=== PATIENT | female | born 1940 | race Hispanic/Latino ===

== ENCOUNTER 2018-01-19 13:05 | Inpatient (IN) | payer MEDICARE ==
[2018-01-19 14:57] LABS: Hematocrit 35.8 % (30.3-42.9); Hemoglobin 11.2 gm/dl (10.1-14.3); Mean Corpuscular Hemoglobin 25 pg (28-32); Mean Corpuscular Volume 80 fl (79-97); Red Blood Count 4.46 M/mm3 (3.65-5.03)
[2018-01-19 14:58] LABS: Basophils # (Auto) 0.1 K/mm3 (0.0-0.1); Basophils % (Auto) 0.6 % (0.0-1.8); Eosinophils # (Auto) 0.4 K/mm3 (0.0-0.4); Eosinophils % (Auto) 2.1 % (0.0-4.3); Lymphocytes # (Auto) 0.8 K/mm3 (1.2-5.4); Lymphocytes % (Auto) 4.9 % (13.4-35.0); Mean Corpuscular HGB Conc 31 % (30-34); Mean Platelet Volume 9.3 fl (6-12); Monocytes # (Auto) 0.9 K/mm3 (0.0-0.8); Monocytes % (Auto) 5.2 % (0.0-7.3); Platelet Count 381 K/mm3 (140-440); Red Cell Distribution Width 15.2 % (13.2-15.2)
[2018-01-19 15:06] LABS: Calcium 9.3 mg/dL (8.4-10.2)
--- NOTE | 2018-01-19 15:49 | Emergency Department Report ---
ED General Adult HPI - General Chief complaint: Dyspnea/Respdistress Stated complaint: ABDI Time Seen by Provider: 01/19/18 15:39 Source: family, EMS Mode of arrival: Stretcher Limitations: Language Barrier, Physical Limitation - History of Present Illness Initial comments: This is a 77 year old longterm resident that was sent for evaluation of "respiratory distress". On review of her transfer documents her pulse oximetry was not apparently documented. Respiratory rate was 19 and she was afebrile. She was transported via EMS for further care and evaluation. I do not find any EMS transfer record yet. The patient has a history of advanced dementia, coronary artery disease, hypothyroidism hypertension and GERD. She is unable to provide any useful historical information. She is however awake and alert. -: unknown Severity scale (0 -10): 0 - Related Data Home Medications Medication Instructions Recorded Confirmed Last Taken Aspirin EC [Aspirin Enteric Coated 81 mg PO DAILY 04/07/14 04/14/14 04/13/14 10: 00 TAB] Clopidogrel [Plavix] 75 mg PO QDAY 04/07/14 04/14/14 04/13/14 22:00 Amlodipine Bes/Olmesartan Med 1 tab PO DAILY 04/08/14 04/14/14 04/13/14 10:00 [Abiola 10-20 mg] Donepezil [Aricept] 10 mg PO DAILY 04/08/14 04/14/14 04/13/14 10:00 Estradiol [Estrace] 1 mg PO DAILY 04/08/14 04/14/14 04/13/14 10:00 Gabapentin Enacarbil [Horizant] 600 mg PO TID 04/08/14 04/14/14 04/13/14 10:00 Hydralazine HCl [Apresoline TAB] 25 mg PO BID 04/08/14 04/14/14 04/14/14 05:00 Isosorbide Mononitrate [Isosorbide 60 mg PO DAILY 04/08/14 04/14/14 04/14/14 05: 00 Mononitrate ER (IMDUR)] Levothyroxine (Nf) [Synthroid (Nf)] 200 mcg PO DAILY 04/08/14 04/14/14 04/14/14 05:00 Lovastatin [Altoprev] 40 mg PO DAILY 04/08/14 04/14/14 04/13/14 10:00 Metoprolol [Lopressor TAB] 25 mg PO DAILY 04/08/14 04/14/14 04/14/14 05:00 Oxybutynin Xl [Ditropan Xl] 15 mg PO DAILY 04/08/14 04/14/14 04/13/14 10:00 Ranitidine HCl [Zantac 300 MG TAB] 300 mg PO HS 04/08/14 04/14/14 04/13/14 13:00 Ranolazine [Ranexa] 1 tab PO BID 04/08/14 04/14/14 04/13/14 18:30 Ropinirole HCl [Requip Xl] 2 mg PO HS 04/08/14 04/14/14 04/13/14 22:00 Previous Rx's Medication Instructions Recorded Last Taken Type Insulin Glargine,Hum.rec.anlog 15 unit SQ QHS #1 bottle 04/17/14 Unknown Rx [Lantus] Syringe,Needle,Insuln,Sf,0.3ML 1 each MC QHS #30 disp.syrin 04/17/14 Unknown Rx [[employer] Insulin Syringe] metFORMIN [Glucophage] 500 mg PO QAMDIAB #60 tablet 04/17/14 Unknown Rx oxyCODONE /ACETAMINOPHEN [Percocet 1 tab PO Q6H PRN #60 tablet 04/17/14 Unknown Rx 5/325 mg] Allergies Allergy/AdvReac Type Severity Reaction Status Date / Time carisoprodol [From Soma] Allergy Unknown Verified 04/09/14 11:03 piroxicam [From Feldene] Allergy cant Verified 04/09/14 11:03 remember ended up in ER ED Review of Systems ROS: Stated complaint: ABDI Other details as noted in HPI Comment: Unobtainable due to pts medical conditions ED Past Medical Hx - Past Medical History Hx Hypertension: Yes (10 YRS; high cholesterol) Hx Heart Attack/AMI: No Hx Diabetes: Yes (6yrs) Hx GERD: Yes Hx Liver Disease: No Hx Renal Disease: No Hx Seizures: No Hx Asthma: Yes Hx COPD: Yes - Surgical History Hx Breast Surgery: Yes (RT CYST REMOVED) - Social History Smoking Status: Former Smoker Substance Use Type: None - Medications Home Medications: Home Medications Medication Instructions Recorded Confirmed Last Taken Type Aspirin EC [Aspirin Enteric Coated 81 mg PO DAILY 0704/14/14 04/13/14 10: 00 History TAB] Clopidogrel [Plavix] 75 mg PO QDAY 04/07/14 04/14/14 04/13/14 22:00 History Amlodipine Bes/Olmesartan Med 1 tab PO DAILY 04/08/14 04/14/14 04/13/14 10:00 History [Abiola 10-20 mg] Donepezil [Aricept] 10 mg PO DAILY 04/08/14 04/14/14 04/13/14 10:00 History Estradiol [Estrace] 1 mg PO DAILY 04/08/14 04/14/14 04/13/14 10:00 History Gabapentin Enacarbil [Horizant] 600 mg PO TID 04/08/14 04/14/14 04/13/14 10:00 History Hydralazine HCl [Apresoline TAB] 25 mg PO BID 04/08/14 04/14/14 04/14/14 05:00 History Isosorbide Mononitrate [Isosorbide 60 mg PO DAILY 04/08/14 04/14/14 04/14/14 05: 00 History Mononitrate ER (IMDUR)] Levothyroxine (Nf) [Synthroid (Nf)] 200 mcg PO DAILY 04/08/14 04/14/14 04/14/14 05:00 History Lovastatin [Altoprev] 40 mg PO DAILY 04/08/14 04/14/14 04/13/14 10:00 History Metoprolol [Lopressor TAB] 25 mg PO DAILY 04/08/14 04/14/14 04/14/14 05:00 History Oxybutynin Xl [Ditropan Xl] 15 mg PO DAILY 04/08/14 04/14/14 04/13/14 10:00 History Ranitidine HCl [Zantac 300 MG TAB] 300 mg PO HS 04/08/14 04/14/14 04/13/14 13: 00 History Ranolazine [Ranexa] 1 tab PO BID 04/08/14 04/14/14 04/13/14 18:30 History Ropinirole HCl [Requip Xl] 2 mg PO HS 04/08/14 04/14/14 04/13/14 22:00 History Insulin Glargine,Hum.rec.anlog 15 unit SQ QHS #1 bottle 04/17/14 Unknown Rx [Lantus] Syringe,Needle,Insuln,Sf,0.3ML 1 each QHS #30 disp.syrin 04/17/14 Unknown Rx [[employer] Insulin Syringe] metFORMIN [Glucophage] 500 mg PO QAMDIAB #60 tablet 04/17/14 Unknown Rx oxyCODONE /ACETAMINOPHEN [Percocet 1 tab PO Q6H PRN #60 tablet 04/17/14 Unknown Rx 5/325 mg] ED Physical Exam - General Limitations: Other (dementia) General appearance: alert, in no apparent distress - Head Head exam: Present: atraumatic, normocephalic - Eye Eye exam: Present: normal appearance. Absent: scleral icterus - ENT ENT exam: Present: mucous membranes moist - Neck Neck exam: Present: normal inspection. Absent: tenderness, meningismus - Respiratory Respiratory exam: Present: normal lung sounds bilaterally. Absent: respiratory distress - Cardiovascular Cardiovascular Exam: Present: regular rate, normal rhythm. Absent: systolic murmur, diastolic murmur, rubs, gallop - GI/Abdominal GI/Abdominal exam: Present: soft, normal bowel sounds. Absent: distended, tenderness, guarding, rebound, rigid - Extremities Exam Extremities exam: Present: normal inspection - Back Exam Back exam: Present: normal inspection. Absent: CVA tenderness (R), CVA tenderness (L) - Neurological Exam Neurological exam: Present: alert, CN II-XII intact. Absent: motor sensory deficit - Psychiatric Psychiatric exam: Present: normal mood, flat affect - Skin Skin exam: Present: warm, dry, intact, normal color. Absent: rash ED Course Vital Signs 01/19/18 01/19/18 01/19/18 13:43 13:55 15:51 Temperature 98.5 F 97.8 F Pulse Rate 106 H 102 H Respiratory 23 15 16 Rate Blood Pressure 139/77 Blood Pressure 143/83 [Left] O2 Sat by Pulse 95 93 95 Oximetry 01/19/18 17:51 Temperature 98.6 F Pulse Rate 98 H Respiratory 14 Rate Blood Pressure Blood Pressure 131/67 [Left] O2 Sat by Pulse 95 Oximetry - Reevaluation(s) Reevaluation #1: It appears that this patient's source of sepsis is likely urinary. She is saying antibiotic coverage and IV fluids. Further care per Dr. Shultz who has admitted the patient to the hospitalist service. 01/19/18 18:37 Reevaluation #2: I have ordered a plain CT of the abdomen and pelvis considering the patient's sepsis and urinary source. 01/19/18 18:39 ED Medical Decision Making - Lab Data Result diagrams: 01/19/18 14:38 01/19/18 14:38 Laboratory Results - last 24 hr 01/19/18 01/19/18 01/19/18 14:38 14:38 14:38 WBC 16.9 H RBC 4.46 Hgb 11.2 Hct 35.8 MCV 80 MCH 25 L MCHC 31 RDW 15.2 Plt Count 381 Lymph % (Auto) 4.9 L [place] % (Auto) 5.2 Eos % (Auto) 2.1 Baso % (Auto) 0.6 Lymph # 0.8 L [place] # 0.9 H Eos # 0.4 Baso # 0.1 Seg Neutrophils % 87.2 H Seg Neutrophils # 14.7 H VBG pH Sodium 140 Potassium 4.8 Chloride 98.1 Carbon Dioxide 23 Anion Gap 24 BUN 24 H Creatinine 1.0 Estimated GFR 54 BUN/Creatinine Ratio 24 Glucose 168 H Calcium 9.3 Troponin T 0.027 NT-Pro-B Natriuret Pep 01/19/18 01/19/18 14:38 14:38 WBC RBC Hgb Hct MCV MCH MCHC RDW Plt Count Lymph % (Auto) [place] % (Auto) Eos % (Auto) Baso % (Auto) Lymph # [place] # Eos # Baso # Seg Neutrophils % Seg Neutrophils # VBG pH 7.264 L Sodium Potassium Chloride Carbon Dioxide Anion Gap BUN Creatinine Estimated GFR BUN/Creatinine Ratio Glucose Calcium Troponin T NT-Pro-B Natriuret Pep 7527 H Laboratory Results - last 24 hr 01/19/18 01/19/18 01/19/18 14:38 14:38 14:38 WBC 16.9 H RBC 4.46 Hgb 11.2 Hct 35.8 MCV 80 MCH 25 L MCHC 31 RDW 15.2 Plt Count 381 Lymph % (Auto) 4.9 L [place] % (Auto) 5.2 Eos % (Auto) 2.1 Baso % (Auto) 0.6 Lymph # 0.8 L [place] # 0.9 H Eos # 0.4 Baso # 0.1 Seg Neutrophils % 87.2 H Seg Neutrophils # 14.7 H PT INR APTT VBG pH Sodium 140 Potassium 4.8 Chloride 98.1 Carbon Dioxide 23 Anion Gap 24 BUN 24 H Creatinine 1.0 Estimated GFR 54 BUN/Creatinine Ratio 24 Glucose 168 H Lactic Acid Calcium 9.3 Magnesium Total Bilirubin Direct Bilirubin Indirect Bilirubin AST ALT Alkaline Phosphatase Troponin T 0.027 NT-Pro-B Natriuret Pep Total Protein Albumin Albumin/Globulin Ratio Urine Color Urine Turbidity Urine pH Ur Specific Joseph Urine Protein Urine Glucose (UA) Urine Ketones Urine Blood Urine Nitrite Urine Bilirubin Urine Urobilinogen Ur Leukocyte Esterase Urine WBC (Auto) Urine RBC (Auto) U Epithel Cells (Auto) Urine Bacteria (Auto) Urine WBC Clumps Urine Mucus 01/19/18 01/19/18 01/19/18 14:38 14:38 16:12 WBC RBC Hgb Hct MCV MCH MCHC RDW Plt Count Lymph % (Auto) [place] % (Auto) Eos % (Auto) Baso % (Auto) Lymph # [place] # Eos # Baso # Seg Neutrophils % Seg Neutrophils # PT 12.8 INR 0.92 APTT 28.6 VBG pH 7.264 L Sodium Potassium Chloride Carbon Dioxide Anion Gap BUN Creatinine Estimated GFR BUN/Creatinine Ratio Glucose Lactic Acid Calcium Magnesium Total Bilirubin Direct Bilirubin Indirect Bilirubin AST ALT Alkaline Phosphatase Troponin T NT-Pro-B Natriuret Pep 7527 H Total Protein Albumin Albumin/Globulin Ratio Urine Color Urine Turbidity Urine pH Ur Specific Joseph Urine Protein Urine Glucose (UA) Urine Ketones Urine Blood Urine Nitrite Urine Bilirubin Urine Urobilinogen Ur Leukocyte Esterase Urine WBC (Auto) Urine RBC (Auto) U Epithel Cells (Auto) Urine Bacteria (Auto) Urine WBC Clumps Urine Mucus 01/19/18 01/19/18 01/19/18 16:12 16:12 17:20 WBC RBC Hgb Hct MCV MCH MCHC RDW Plt Count Lymph % (Auto) [place] % (Auto) Eos % (Auto) Baso % (Auto) Lymph # [place] # Eos # Baso # Seg Neutrophils % Seg Neutrophils # PT INR APTT VBG pH Sodium Potassium Chloride Carbon Dioxide Anion Gap BUN Creatinine Estimated GFR BUN/Creatinine Ratio Glucose Lactic Acid 5.40 H* Calcium Magnesium 1.50 L Total Bilirubin 0.20 Direct Bilirubin < 0.2 Indirect Bilirubin 0.0 AST 10 ALT 6 L Alkaline Phosphatase 56 Troponin T NT-Pro-B Natriuret Pep Total Protein 7.2 Albumin 4.2 Albumin/Globulin Ratio 1.4 Urine Color Yellow Urine Turbidity Clear Urine pH 5.0 Ur Specific Joseph 1.014 Urine Protein 100 mg/dl Urine Glucose (UA) Neg Urine Ketones Neg Urine Blood Sm Urine Nitrite Pos Urine Bilirubin Neg Urine Urobilinogen < 2.0 Ur Leukocyte Esterase Lg Urine WBC (Auto) > 182.0 H Urine RBC (Auto) 49.0 U Epithel Cells (Auto) 1.0 Urine Bacteria (Auto) 4+ Urine WBC Clumps 3+ Urine Mucus Few - Radiology Data Radiology results: report reviewed (chest x-ray no acute process. CT report pending but I don't see infiltrate or pulmonary embolism grossly.) Critical Care Time: Yes Critical care time in (mins) excluding proc time.: 50 Critical care attestation.: If time is entered above; I have spent that time in minutes in the direct care of this critically ill patient, excluding procedure time. ED Disposition Clinical Impression: Sepsis Qualifiers: Sepsis type: sepsis due to unspecified organism Qualified Code(s): A41.9 - Sepsis, unspecified organism UTI (urinary tract infection) Qualifiers: Urinary tract infection type: site unspecified Hematuria presence: without hematuria Qualified Code(s): N39.0 - Urinary tract infection, site not specified Disposition: 09 OP ADMIT IP TO THIS HOSP Is pt being admited?: Yes Does the pt Need Aspirin: Yes Condition: Stable Referrals: ИРИНА BERKOWITZ MD [Primary Care Provider] - 3-5 Days Time of Disposition: 18:40
[2018-01-19] MEDS ORDERED: LEVAQUIN 750MG/150ML 750 MG/150 ML BAG IV ONE (16:01)
--- NOTE | 2018-01-19 16:22 | XRay Report ---
FINAL REPORT EXAM: XR CHEST 1V AP HISTORY: dyspnea TECHNIQUE: Single, portable chest x-ray. PRIORS: None. FINDINGS: Cardiac and mediastinal silhouette within normal limits. Lungs are normally expanded, without significant vascular congestion. No focal consolidation or apparent pneumothorax. Bony thorax grossly unremarkable. IMPRESSION: 1. No acute findings.
[2018-01-19 16:41] LABS: INR 0.92 (0.87-1.13)
[2018-01-19 16:42] LABS: Partial Thromboplastin Time 28.6 Sec. (24.2-36.6)
[2018-01-19 16:44] LABS: Alanine Aminotransferase 6 units/L (7-56); Albumin 4.2 g/dL (3.9-5)
[2018-01-19 16:45] LABS: Bilirubin,Direct < 0.2 mg/dL (0-0.2)
[2018-01-19 17:41] LABS: Bacteria,Urine 4+ /HPF (Negative); Bilirubin,Urine NEG (Negative); Blood,Urine SM (Negative); Color,Urine Yellow (Yellow); Mucus,Urine FEW /HPF; Urobilinogen,Urine < 2.0 mg/dL (<2.0)
[2018-01-19 17:43] LABS: WBC,Urine > 182.0 /HPF (0.0-6.0)
[2018-01-19] MEDS ORDERED: VANCOMYCIN PHARMACY TO DOSE IV SCH (18:00)
[2018-01-19] MEDS ORDERED: ZOSYN/NS 3.375GM/50ML 3.375 GM/50 ML BAG IV SCH (18:00)
[2018-01-19] MEDS ORDERED: VANCOMYCIN/NS 1 GM/250 ML 1 GM/250 ML BAG IV ONE (18:00)
[2018-01-19] MEDS ORDERED: NACL 0.9% 1000 ML 1,000 ML IV ONE (18:38)
--- NOTE | 2018-01-19 19:02 | Cat Scan Report ---
FINAL REPORT EXAM: CT ANGIO CHEST HISTORY: ABDI TECHNIQUE: Spiral CTA of the chest after the uneventful administration of IV contrast. Multiplanar reformations. 100 mL Omnipaque IV. PRIORS: None. FINDINGS: Chest: The main and bilateral proximal pulmonary arteries are normally opacified without endoluminal filling defects. Cardiac size within normal limits. Diffuse coronary artery calcifications. Diffuse, calcific atherosclerotic change in the thoracic aorta. No apparent aneurysm, pseudoaneurysm or aortic dissection. No significant lymph node enlargement or axillary adenopathy. Lobular or polypoid, soft tissue density noted eccentrically in the right infraglottic larynx measuring approximately 8 mm, nonspecific. Majority of the esophagus prominent or capacious and contains particulate material throughout most of its extent. Very small hiatal hernia. Lungs show mild interstitial prominence in the lung bases, with questionable endobronchial soft tissue density or mucous plugging in the left basilar bronchial airways. No discrete parenchymal mass, focal consolidation or pleural effusions. No apparent pneumothorax. Tiny gallstones noted without significant pericholecystic fluid collection. Approximately 7 mm calcification noted in the right renal upper pole without significant hydronephrosis. Remainder of visualized upper abdomen grossly unremarkable. Diffuse osteopenia and degenerative change in the thoracic spine. IMPRESSION: 1. No evidence of large vessel or central pulmonary emboli. No acute consolidation. Coronary artery calcifications. 2. Soft tissue nodular density in right infraglottic larynx may represent secretions versus polypoid lesion. Followup suggested. 3. Capacious esophagus containing particulate/probable ingested material throughout majority of esophagus possibly related to reflux. 4. Bibasilar interstitial prominence and slight endobronchial soft tissue density or mucous plugging primarily in left basilar bronchial airways may be postinfectious/inflammatory or sequelae of aspiration. Exact etiology or significance uncertain, and clinical correlation along with followup may be warranted. 5. Cholelithiasis. 6. Nonobstructing right renal calcification. No significant right hydronephrosis.
--- NOTE | 2018-01-19 19:12 | History and Physical Report ---
History of Present Illness Date of examination: 01/19/18 Date of admission: 01/19/18 Chief complaint: CC SOB and altered sensorium History of present illness: History of Present Illness: 77 year old [facility] resident with severe dementia was sent for evaluation of "respiratory distress". WAS doing well and at her baseline last night per daughter. Respiratory rate was 19 and she was afebrile.Patient was apparently foaming at mouth and 200 ml of secretions were suctioned per daughter. She was transported via EMS for further care and evaluation. She is however awake and alert.No fever or chills Past Medical History Hx Hypertension: Yes (10 YRS; high cholesterol) Hx Heart Attack/AMI: No Hx Diabetes: Yes (6yrs) Hx GERD: Yes Hx Asthma: Yes Hx COPD: Yes - Surgical History Hx Breast Surgery: Yes (RT CYST REMOVED) - Social History Smoking Status: Former Smoker Substance Use Type: None Family History Htn - Medications Home Medications: Home Medications Medication Instructions Recorded Confirmed Last Taken Type Aspirin EC [Aspirin Enteric Coated 81 mg PO DAILY 04/07/14 04/14/14 04/13/14 10: 00 History TAB] Clopidogrel [Plavix] 75 mg PO QDAY 04/07/14 04/14/14 04/13/14 22:00 History Amlodipine Bes/Olmesartan Med 1 tab PO DAILY 04/08/14 04/14/14 04/13/14 10:00 History [Abiola 10-20 mg] Donepezil [Aricept] 10 mg PO DAILY 04/08/14 04/14/14 04/13/14 10:00 History Estradiol [Estrace] 1 mg PO DAILY 04/08/14 04/14/14 04/13/14 10:00 History Gabapentin Enacarbil [Horizant] 600 mg PO TID 04/08/14 04/14/14 04/13/14 10:00 History Hydralazine HCl [Apresoline TAB] 25 mg PO BID 04/08/14 04/14/14 04/14/14 05:00 History Isosorbide Mononitrate [Isosorbide 60 mg PO DAILY 04/08/14 04/14/14 04/14/14 05: 00 History Mononitrate ER (IMDUR)] Levothyroxine (Nf) [Synthroid (Nf)] 200 mcg PO DAILY 07/04/14/14 04/14/14 05:00 History Lovastatin [Altoprev] 40 mg PO DAILY 04/08/14 04/14/14 04/13/14 10:00 History Metoprolol [Lopressor TAB] 25 mg PO DAILY 04/08/14 04/14/14 04/14/14 05:00 History Oxybutynin Xl [Ditropan Xl] 15 mg PO DAILY 04/08/14 04/14/14 04/13/14 10:00 History Ranitidine HCl [Zantac 300 MG TAB] 300 mg PO HS 04/08/14 04/14/14 04/13/14 13: 00 History Ranolazine [Ranexa] 1 tab PO BID 04/08/14 04/14/14 04/13/14 18:30 History Ropinirole HCl [Requip Xl] 2 mg PO HS 04/08/14 04/14/14 04/13/14 22:00 History Insulin Glargine,Hum.rec.anlog 15 unit SQ QHS #1 bottle 04/17/14 Unknown Rx [Lantus] Syringe,Needle,Insuln,Sf,0.3ML 1 each MC QHS #30 disp.syrin 04/17/14 Unknown Rx [[place] Insulin Syringe] metFORMIN [Glucophage] 500 mg PO QAMDIAB #60 tablet 04/17/14 Unknown Rx oxyCODONE /ACETAMINOPHEN [Percocet 1 tab PO Q6H PRN #60 tablet 04/17/14 Unknown Rx 5/325 mg] Review of Systems ROS: Stated complaint: ABDI Other details as noted in HPI Comment: Unobtainable due to pts medical conditions Medications and Allergies Allergies Allergy/AdvReac Type Severity Reaction Status Date / Time carisoprodol [From [place]] Allergy Unknown Verified 04/09/14 11:03 piroxicam [From Feldene] Allergy cant Verified 04/09/14 11:03 remember ended up in ER Home Medications Medication Instructions Recorded Confirmed Last Taken Type Aspirin EC [Aspirin Enteric Coated 81 mg PO DAILY 04/07/14 01/20/18 04/13/14 10: 00 History TAB] Clopidogrel [Plavix] 75 mg PO QDAY 04/07/14 01/20/18 04/13/14 22:00 History Amlodipine Bes/Olmesartan Med 1 tab PO DAILY 04/08/14 01/20/18 04/13/14 10:00 History [Abiola 10-20 mg] Donepezil [Aricept] 10 mg PO DAILY 04/08/14 01/20/18 04/13/14 10:00 History Estradiol [Estrace] 1 mg PO DAILY 04/08/14 01/20/18 04/13/14 10:00 History Gabapentin Enacarbil [Horizant] 600 mg PO TID 04/08/14 01/20/18 04/13/14 10:00 History Hydralazine HCl [Apresoline TAB] 25 mg PO BID 04/08/14 01/20/18 04/14/14 05:00 History Isosorbide Mononitrate [Isosorbide 60 mg PO DAILY 04/08/14 01/20/18 04/14/14 05: 00 History Mononitrate ER (IMDUR)] Levothyroxine (Nf) [Synthroid (Nf)] 200 mcg PO DAILY 04/08/14 01/20/18 04/14/14 05:00 History Lovastatin [Altoprev] 40 mg PO DAILY 04/08/14 01/20/18 04/13/14 10:00 History Metoprolol [Lopressor TAB] 25 mg PO DAILY 04/08/14 01/20/18 04/14/14 05:00 History Oxybutynin Xl [Ditropan Xl] 15 mg PO DAILY 04/08/14 01/20/18 04/13/14 10:00 History Ranitidine HCl [Zantac 300 MG TAB] 300 mg PO HS 04/08/14 01/20/18 04/13/14 13: 00 History Ranolazine [Ranexa] 1 tab PO BID 04/08/14 01/20/18 04/13/14 18:30 History Ropinirole HCl [Requip Xl] 2 mg PO HS 04/08/14 01/20/18 04/13/14 22:00 History Insulin Glargine,Hum.rec.anlog 15 unit SQ QHS #1 bottle 04/17/14 01/20/18 Unknown Rx [Lantus] Syringe,Needle,Insuln,Sf,0.3ML 1 each QHS #30 disp.syrin 04/17/14 01/20/18 Unknown Rx [[place] Insulin Syringe] metFORMIN [Glucophage] 500 mg PO QAMDIAB #60 tablet 04/17/14 01/20/18 Unknown Rx oxyCODONE /ACETAMINOPHEN [Percocet 1 tab PO Q6H PRN #60 tablet 04/17/14 Unknown Rx 5/325 mg] Active Meds: Active Medications Piperacillin Sod/Tazobactam Sod (Zosyn/Ns 3.375gm/50ml) 3.375 gm in 50 mls @ 100 mls/hr IV Q6HR JOSE FRANCISCO; Protocol Vancomycin HCl 750 mg/ Sodium (Chloride) 250 mls @ 166.667 mls/hr IV Q24H JOSE FRANCISCO Sodium Chloride (Nacl 0.9% 1000 Ml) 1,000 mls @ 999 mls/hr IV BOLUS ONE Stop: 01/19/18 19:38 Vancomycin HCl (Vancomycin Pharmacy To Dose) 1 each IV PKCONSULT JOSE FRANCISCO; Protocol Exam - Constitutional Vitals: Temp Pulse Resp BP Pulse Ox 98.6 F 98 H 14 131/67 95 01/19/18 17:51 01/19/18 17:51 01/19/18 17:51 01/19/18 17:51 01/19/18 17:51 General appearance: Present: mild distress, well-nourished - EENT Eyes: Present: PERRL ENT: hearing intact, clear oral mucosa - Neck Neck: Present: supple, normal ROM - Respiratory Respiratory effort: normal Respiratory: bilateral: CTA, rhonchi - Cardiovascular Heart rate: 80 Rhythm: regular Heart Sounds: Present: S1 & S2. Absent: rub, click - Extremities Extremities: no ischemia, pulses intact, pulses symmetrical, No edema Peripheral Pulses: within normal limits - Abdominal General gastrointestinal: Present: soft, non-tender, non-distended, normal bowel sounds Female genitourinary: Present: normal - Integumentary Integumentary: Present: clear, warm, dry - Musculoskeletal Musculoskeletal: gait normal, strength equal bilaterally - Psychiatric Psychiatric: cooperative, other (Alert but not oriented) - Neurologic Neurologic: CNII-XII intact, moves all extremities - Allied Health Allied health notes reviewed: nursing, case management Results - Labs CBC & Chem 7: 01/20/18 03:44 01/20/18 03:44 Labs: Laboratory Last Values WBC 16.9 K/mm3 (4.5-11.0) H 01/19/18 14:38 RBC 4.46 M/mm3 (3.65-5.03) 01/19/18 14:38 Hgb 11.2 gm/dl (10.1-14.3) 01/19/18 14:38 Hct 35.8 % (30.3-42.9) 01/19/18 14:38 MCV 80 fl (79-97) 01/19/18 14:38 MCH 25 pg (28-32) L 01/19/18 14:38 MCHC 31 % (30-34) 01/19/18 14:38 RDW 15.2 % (13.2-15.2) 01/19/18 14:38 Plt Count 381 K/mm3 (140-440) 01/19/18 14:38 Lymph % (Auto) 4.9 % (13.4-35.0) L 01/19/18 14:38 [place] % (Auto) 5.2 % (0.0-7.3) 01/19/18 14:38 Eos % (Auto) 2.1 % (0.0-4.3) 01/19/18 14:38 Baso % (Auto) 0.6 % (0.0-1.8) 01/19/18 14:38 Lymph # 0.8 K/mm3 (1.2-5.4) L 01/19/18 14:38 [place] # 0.9 K/mm3 (0.0-0.8) H 01/19/18 14:38 Eos # 0.4 K/mm3 (0.0-0.4) 01/19/18 14:38 Baso # 0.1 K/mm3 (0.0-0.1) 01/19/18 14:38 Seg Neutrophils % 87.2 % (40.0-70.0) H 01/19/18 14:38 Seg Neutrophils # 14.7 K/mm3 (1.8-7.7) H 01/19/18 14:38 PT 12.8 Sec. (12.2-14.9) 01/19/18 16:12 INR 0.92 (0.87-1.13) 01/19/18 16:12 APTT 28.6 Sec. (24.2-36.6) 01/19/18 16:12 VBG pH 7.264 (7.320-7.420) L 01/19/18 14:38 Sodium 140 mmol/L (137-145) 01/19/18 14:38 Potassium 4.8 mmol/L (3.6-5.0) 01/19/18 14:38 Chloride 98.1 mmol/L (98-107) 01/19/18 14:38 Carbon Dioxide 23 mmol/L (22-30) 01/19/18 14:38 Anion Gap 24 mmol/L 01/19/18 14:38 BUN 24 mg/dL (7-17) H 01/19/18 14:38 Creatinine 1.0 mg/dL (0.7-1.2) 01/19/18 14:38 Estimated GFR 54 ml/min 01/19/18 14:38 BUN/Creatinine Ratio 24 % 01/19/18 14:38 Glucose 168 mg/dL (65-100) H 01/19/18 14:38 Lactic Acid 5.40 mmol/L (0.7-2.0) H* 01/19/18 16:12 Calcium 9.3 mg/dL (8.4-10.2) 01/19/18 14:38 Magnesium 1.50 mg/dL (1.7-2.3) L 01/19/18 16:12 Total Bilirubin 0.20 mg/dL (0.1-1.2) 01/19/18 16:12 Direct Bilirubin < 0.2 mg/dL (0-0.2) 01/19/18 16:12 Indirect Bilirubin 0.0 mg/dL 01/19/18 16:12 AST 10 units/L (5-40) 01/19/18 16:12 ALT 6 units/L (7-56) L 01/19/18 16:12 Alkaline Phosphatase 56 units/L (35-129) 01/19/18 16:12 Troponin T 0.027 ng/mL (0.00-0.029) 01/19/18 14:38 NT-Pro-B Natriuret Pep 7527 pg/mL (0-900) H 01/19/18 14:38 Total Protein 7.2 g/dL (6.3-8.2) 01/19/18 16:12 Albumin 4.2 g/dL (3.9-5) 01/19/18 16:12 Albumin/Globulin Ratio 1.4 % 01/19/18 16:12 Urine Color Yellow (Yellow) 01/19/18 17:20 Urine Turbidity Clear (Clear) 01/19/18 17:20 Urine pH 5.0 (5.0-7.0) 01/19/18 17:20 Ur Specific [place] 1.014 (1.003-1.030) 01/19/18 17:20 Urine Protein 100 mg/dl mg/dL (Negative) 01/19/18 17:20 Urine Glucose (UA) Neg mg/dL (Negative) 01/19/18 17:20 Urine Ketones Neg mg/dL (Negative) 01/19/18 17:20 Urine Blood Sm (Negative) 01/19/18 17:20 Urine Nitrite Pos (Negative) 01/19/18 17:20 Urine Bilirubin Neg (Negative) 01/19/18 17:20 Urine Urobilinogen < 2.0 mg/dL (<2.0) 01/19/18 17:20 Ur Leukocyte Esterase Lg (Negative) 01/19/18 17:20 Urine WBC (Auto) > 182.0 /HPF (0.0-6.0) H 01/19/18 17:20 Urine RBC (Auto) 49.0 /HPF (0.0-6.0) 01/19/18 17:20 U Epithel Cells (Auto) 1.0 /HPF (0-13.0) 01/19/18 17:20 Urine Bacteria (Auto) 4+ /HPF (Negative) 01/19/18 17:20 Urine WBC Clumps 3+ /HPF 01/19/18 17:20 Urine Mucus Few /HPF 01/19/18 17:20 - Imaging and Cardiology EKG: report reviewed Chest x-ray: report reviewed (NAF) Imaging and Cardiology: Chest CTA IMPRESSION: 1. No evidence of large vessel or central pulmonary emboli. No acute consolidation. Coronary artery calcifications. 2. Soft tissue nodular density in right infraglottic larynx may represent secretions versus polypoid lesion. Followup suggested. 3. Capacious esophagus containing particulate/probable ingested material throughout majority of esophagus possibly related to reflux. 4. Bibasilar interstitial prominence and slight endobronchial soft tissue density or mucous plugging primarily in left basilar bronchial airways may be postinfectious/inflammatory or sequelae of aspiration. Exact etiology or significance uncertain, and clinical correlation along with followup may be warranted. 5. Cholelithiasis. 6. Nonobstructing right renal calcification. No significant right hydronephrosis. CT Abdomen IMPRESSION: 1. Cholelithiasis. 2. Constipation. Assessment and Plan Advance Directives: Yes (Full code) VTE prophylaxis?: Chemical Plan of care discussed with patient/family: Yes - Patient Problems (1) Sepsis Current Visit: Yes Status: Acute Qualifiers: Sepsis type: sepsis due to unspecified organism Qualified Code(s): A41.9 - Sepsis, unspecified organism Plan to address problem: Initiated on zosyn and Vanco Pending Blood cultures and Urine cultures Poss source UTI versus Aspiration (2) Aspiration pneumonia due to food (regurgitated) Current Visit: Yes Status: Acute Qualifiers: Laterality: unspecified laterality Lung location: unspecified part of lung Qualified Code(s): J69.0 - Pneumonitis due to inhalation of food and vomit Plan to address problem: A strong possibility in view of large amount of food in Esophagus (3) UTI (urinary tract infection) Current Visit: Yes Status: Acute Qualifiers: Urinary tract infection type: site unspecified Hematuria presence: without hematuria Qualified Code(s): N39.0 - Urinary tract infection, site not specified Plan to address problem: On Zosyn and Vanco (4) Hypertension Current Visit: No Status: Chronic Qualifiers: Hypertension type: essential hypertension Qualified Code(s): I10 - Essential (primary) hypertension Plan to address problem: Cont Antihypertensives (5) CAD (coronary artery disease) Current Visit: Yes Status: Chronic Qualifiers: Coronary Disease-Associated Artery/Lesion type: [place] artery [place] vs. transplanted heart: [place] heart Associated angina: without angina Qualified Code(s): I25.10 - Atherosclerotic heart disease of [place] coronary artery without angina pectoris Plan to address problem: Cont Plavix andf Imdur (6) Dementia Current Visit: No Status: Chronic Qualifiers: Dementia type: vascular dementia Plan to address problem: Cont Donepezil (7) Hypothyroidism Current Visit: No Status: Chronic Qualifiers: Hypothyroidism type: acquired Qualified Code(s): E03.9 - Hypothyroidism, unspecified Plan to address problem: Cont Levothyroxine (8) OAB (overactive bladder) Current Visit: Yes Status: Chronic Plan to address problem: On Oxybutinin (9) T2DM (type 2 diabetes mellitus) Current Visit: Yes Status: Chronic Qualifiers: Diabetes mellitus terminal operator insulin use: unspecified terminal operator insulin use status Plan to address problem: Coverage for now Check A1c (10) DVT prophylaxis Current Visit: No Status: Acute Plan to address problem: On Heparin
--- NOTE | 2018-01-19 20:12 | Cat Scan Report ---
FINAL REPORT EXAM: CT ABDOMEN PELVIS WO CON HISTORY: sepsis, UTI TECHNIQUE: Spiral CT scanning of the abdomen and pelvis. No oral or IV contrast administered. Multiplanar reformations. PRIORS: CTA chest of same date. FINDINGS: Abdomen: Examination limited due to lack of contrast administration. Lung bases evaluated on CTA chest examination of same date. Multiple, tiny gallstones noted without significant pericholecystic fluid collection. Liver grossly unremarkable. Spleen grossly unremarkable. Pancreas grossly unremarkable. Kidneys grossly unremarkable. Calcification noted previously in right renal upper pole less apparent due to residual contrast excretion. Adrenal glands grossly unremarkable. Pelvis: Bowel evaluation limited due to lack of oral contrast administration and large amount of retained stool, including considerable impaction in the rectosigmoid colon, but grossly unremarkable. Appendix is not confidently identified. No significant free peritoneal fluid or loculated fluid collection. Diffuse aortoiliac calcification without aneurysmal dilatation. Urinary bladder opacified with residual contrast excretion and grossly unremarkable. Diffuse osteopenia and mild degenerative change in the thoracolumbar spine. Probable mild Schmorl's node changes noted in the L2 superior endplate. IMPRESSION: 1. Cholelithiasis. 2. Constipation.
[2018-01-19] MEDS ORDERED: PERCOCET 5/325 PO PRN (22:06)
[2018-01-19] MEDS ORDERED: TYLENOL PO PRN (22:09)
[2018-01-19] MEDS ORDERED: ZOFRAN IV PRN (22:09)
[2018-01-19] MEDS ORDERED: MORPHINE IV PRN (22:09)
[2018-01-19] MEDS ORDERED: SODIUM CHLORIDE FLUSH SYRINGE 10 ML IV PRN (22:09)
[2018-01-19] MEDS ORDERED: NON-FORMULARY (Hydralazine Hcl [Apresoline Tab] 25 MG) PO SCH (22:15)
[2018-01-19] MEDS ORDERED: PEPCID IV SCH (23:00)
[2018-01-19] MEDS: RANEXA ER PO SCH (23:40)
[2018-01-19] MEDS: APRESOLINE PO SCH (23:41)
[2018-01-19] MEDS: PEPCID IV SCH (23:41)
[2018-01-20 04:19] LABS: Basophils # (Auto) 0.1 K/mm3 (0.0-0.1); Basophils % (Auto) 0.4 % (0.0-1.8); Eosinophils # (Auto) 0.1 K/mm3 (0.0-0.4); Eosinophils % (Auto) 0.8 % (0.0-4.3); Hematocrit 30.6 % (30.3-42.9); Hemoglobin 9.8 gm/dl (10.1-14.3); Lymphocytes # (Auto) 1.3 K/mm3 (1.2-5.4); Lymphocytes % (Auto) 6.9 % (13.4-35.0); Mean Corpuscular HGB Conc 32 % (30-34); Mean Corpuscular Hemoglobin 26 pg (28-32); Mean Corpuscular Volume 80 fl (79-97); Monocytes # (Auto) 1.1 K/mm3 (0.0-0.8); Monocytes % (Auto) 6.3 % (0.0-7.3); Platelet Count 327 K/mm3 (140-440); Red Blood Count 3.81 M/mm3 (3.65-5.03)
[2018-01-20 04:22] LABS: Alanine Aminotransferase 5 units/L (7-56); Albumin 3.7 g/dL (3.9-5); BUN/Creatinine Ratio 29; Blood Urea Nitrogen 20 mg/dL (7-17); Calcium 8.6 mg/dL (8.4-10.2); Hemolysis Index 10
[2018-01-20] MEDS: ZOSYN/NS 3.375GM/50ML 3.375 GM/50 ML BAG IV SCH ×3 (06:10→22:55)
[2018-01-20] MEDS: SYNTHROID PO SCH (06:10)
[2018-01-20] MEDS: HumaLOG SUB-Q SCH ×4 (07:30→22:54)
[2018-01-20] MEDS: DUONEB *Not for PRN Use IH SCH ×3 (08:27→20:12)
[2018-01-20] MEDS: COZAAR PO SCH (10:00)
[2018-01-20] MEDS ORDERED: NON-FORMULARY (Amlodipine Bes/Olmesartan Med [Azor 10-20 Mg] 1 TAB) PO SCH (10:00)
[2018-01-20] MEDS ORDERED: NON-FORMULARY (Lovastatin [Altoprev] 40 MG) PO SCH (10:00)
[2018-01-20] MEDS: NORVASC PO SCH (10:00)
[2018-01-20] MEDS ORDERED: NON-FORMULARY (Levothyroxine (Nf) [Synthroid (Nf)] 200 MCG) PO SCH (10:00)
[2018-01-20] MEDS: APRESOLINE PO SCH ×2 (10:00→22:53)
--- NOTE | 2018-01-20 11:07 | Progress Note ---
Assessment and Plan Assessment and plan: Chest CTA , image reviewed IMPRESSION: 1. No evidence of large vessel or central pulmonary emboli. No acute consolidation. Coronary artery calcifications. 2. Soft tissue nodular density in right infraglottic larynx may represent secretions versus polypoid lesion. Followup suggested. 3. Capacious esophagus containing particulate/probable ingested material throughout majority of esophagus possibly related to reflux. 4. Bibasilar interstitial prominence and slight endobronchial soft tissue density or mucous plugging primarily in left basilar bronchial airways may be postinfectious/inflammatory or sequelae of aspiration. Exact etiology or significance uncertain, and clinical correlation along with followup may be warranted. 5. Cholelithiasis. 6. Nonobstructing right renal calcification. No significant right hydronephrosis. CT Abdomen IMPRESSION: 1. Cholelithiasis. 2. Constipation. Sepsis due to UTI and aspiration PNA continue abx, pureed diet S/S eval -urine cx growing gram neg rods Dysphagia? s/s eval Capacious esophagus with food debris barium swallow to r/o stricture GI consulted laryngeal mass? -may be food particle ENT consulted, but Dr Balderrama asked that patient be referred to her clinic outpatient consult with ENT pulmonary consult Hypertension Cont Antihypertensives CAD (coronary artery disease) Plavix and Imdur Dementia Cont Donepezil Hypothyroidism Cont Levothyroxine OAB (overactive bladder) On Oxybutinin T2DM (type 2 diabetes mellitus) SSI DVT prophylaxis On Heparin History Interval history: Review of systems Constitutional: No fevers, no malaise, no joint pains CVS: No chest pain, no orthopnea, no dyspnea on exertion, no pedal edema GI: No abdominal pain, no diarrhea, no vomiting, no constipation Respiratory: No shortness of breath, no wheezing, no coughing Hospitalist Physical - Physical exam Narrative exam: General.: Appears well, no distress, nontoxic HEENT: Moist mucous membranes, extraocular muscles intact, no lymphadenopathy Neck: supple Cardiac: S1-S2 heard Lungs: clear to auscultation bilaterally Abdomen: soft , nontender, nondistended, bowel sounds positive Extremities: no edema clubbing or cyanosis Skin: no rash or lesions Neurologic: no gross focal deficits, demented, oriented x1 only, mumbling rubbish, demented Psych:child like behavior, demented - Constitutional Vitals: Temp Pulse Resp BP Pulse Ox 97.6 F 76 14 113/63 96 01/20/18 07:00 01/20/18 08:39 01/20/18 08:39 01/20/18 07:00 01/20/18 08:41 General appearance: Present: mild distress, well-nourished Results - Labs CBC & Chem 7: 01/20/18 03:44 01/20/18 03:44 Labs: Laboratory Last Values WBC 18.1 K/mm3 (4.5-11.0) H 01/20/18 03:44 RBC 3.81 M/mm3 (3.65-5.03) 01/20/18 03:44 Hgb 9.8 gm/dl (10.1-14.3) L 01/20/18 03:44 Hct 30.6 % (30.3-42.9) 01/20/18 03:44 MCV 80 fl (79-97) 01/20/18 03:44 MCH 26 pg (28-32) L 01/20/18 03:44 MCHC 32 % (30-34) 01/20/18 03:44 RDW 15.0 % (13.2-15.2) 01/20/18 03:44 Plt Count 327 K/mm3 (140-440) 01/20/18 03:44 Lymph % (Auto) 6.9 % (13.4-35.0) L 01/20/18 03:44 [place] % (Auto) 6.3 % (0.0-7.3) 01/20/18 03:44 Eos % (Auto) 0.8 % (0.0-4.3) 01/20/18 03:44 Baso % (Auto) 0.4 % (0.0-1.8) 01/20/18 03:44 Lymph # 1.3 K/mm3 (1.2-5.4) 01/20/18 03:44 [place] # 1.1 K/mm3 (0.0-0.8) H 01/20/18 03:44 Eos # 0.1 K/mm3 (0.0-0.4) 01/20/18 03:44 Baso # 0.1 K/mm3 (0.0-0.1) 01/20/18 03:44 Seg Neutrophils % 85.6 % (40.0-70.0) H 01/20/18 03:44 Seg Neutrophils # 15.5 K/mm3 (1.8-7.7) H 01/20/18 03:44 PT 12.8 Sec. (12.2-14.9) 01/19/18 16:12 INR 0.92 (0.87-1.13) 01/19/18 16:12 APTT 28.6 Sec. (24.2-36.6) 01/19/18 16:12 VBG pH 7.264 (7.320-7.420) L 01/19/18 14:38 Sodium 137 mmol/L (137-145) 01/20/18 03:44 Potassium 4.5 mmol/L (3.6-5.0) 01/20/18 03:44 Chloride 99.7 mmol/L (98-107) 01/20/18 03:44 Carbon Dioxide 20 mmol/L (22-30) L 01/20/18 03:44 Anion Gap 22 mmol/L 01/20/18 03:44 BUN 20 mg/dL (7-17) H 01/20/18 03:44 Creatinine 0.7 mg/dL (0.7-1.2) 01/20/18 03:44 Estimated GFR > 60 ml/min 01/20/18 03:44 BUN/Creatinine Ratio 29 % 01/20/18 03:44 Glucose 95 mg/dL (65-100) 01/20/18 03:44 POC Glucose 152 (70-105) H 01/20/18 10:08 Hemoglobin A1c 5.9 % (4-6) 01/20/18 01:17 Lactic Acid 1.30 mmol/L (0.7-2.0) 01/20/18 01:17 Calcium 8.6 mg/dL (8.4-10.2) 01/20/18 03:44 Magnesium 1.50 mg/dL (1.7-2.3) L 01/19/18 16:12 Total Bilirubin 0.20 mg/dL (0.1-1.2) 01/20/18 03:44 Direct Bilirubin < 0.2 mg/dL (0-0.2) 01/19/18 16:12 Indirect Bilirubin 0.0 mg/dL 01/19/18 16:12 AST 10 units/L (5-40) 01/20/18 03:44 ALT 5 units/L (7-56) L 01/20/18 03:44 Alkaline Phosphatase 51 units/L (35-129) 01/20/18 03:44 Troponin T 0.027 ng/mL (0.00-0.029) 01/19/18 14:38 NT-Pro-B Natriuret Pep 7527 pg/mL (0-900) H 01/19/18 14:38 Total Protein 6.5 g/dL (6.3-8.2) 01/20/18 03:44 Albumin 3.7 g/dL (3.9-5) L 01/20/18 03:44 Albumin/Globulin Ratio 1.3 % 01/20/18 03:44 Urine Color Yellow (Yellow) 01/19/18 17:20 Urine Turbidity Clear (Clear) 01/19/18 17:20 Urine pH 5.0 (5.0-7.0) 01/19/18 17:20 Ur Specific [place] 1.014 (1.003-1.030) 01/19/18 17:20 Urine Protein 100 mg/dl mg/dL (Negative) 01/19/18 17:20 Urine Glucose (UA) Neg mg/dL (Negative) 01/19/18 17:20 Urine Ketones Neg mg/dL (Negative) 01/19/18 17:20 Urine Blood Sm (Negative) 01/19/18 17:20 Urine Nitrite Pos (Negative) 01/19/18 17:20 Urine Bilirubin Neg (Negative) 01/19/18 17:20 Urine Urobilinogen < 2.0 mg/dL (<2.0) 01/19/18 17:20 Ur Leukocyte Esterase Lg (Negative) 01/19/18 17:20 Urine WBC (Auto) > 182.0 /HPF (0.0-6.0) H 01/19/18 17:20 Urine RBC (Auto) 49.0 /HPF (0.0-6.0) 01/19/18 17:20 U Epithel Cells (Auto) 1.0 /HPF (0-13.0) 01/19/18 17:20 Urine Bacteria (Auto) 4+ /HPF (Negative) 01/19/18 17:20 Urine WBC Clumps 3+ /HPF 01/19/18 17:20 Urine Mucus Few /HPF 01/19/18 17:20
--- NOTE | 2018-01-20 12:55 | Fluoroscopy Report ---
FLUOROSCOPY BARIUM SWALLOW/ESOPHAGRAM INDICATION: Suspected stricture. COMPARISON: Yesterday's CT. IMAGES/CINE CLIPS: 16 FINDINGS: Barium swallow performed, though limited due to patient's inability to stand or position well. Patient though drank thin barium without any difficulty. No aspiration, penetration or abnormal pooling within the vallecula or piriform sinuses noted. Cervical fusion hardware incidentally seen. Normal esophageal course and caliber. Tertiary esophageal contractions. Mucosal evaluation also suboptimal due to presence of debris/retained material. No significant hiatal hernia. Gastroesophageal reflux evaluation suboptimal. Mild waist at the GE junction questioned on few initial images, though subsequently obscured due to gastric opacification. CONCLUSION: Mild waist at the GE junction not entirely excluded without other marked esophageal narrowing identified on this limited exam, as described. Please correlate. Thank you for the opportunity to participate in this patient's care.
[2018-01-20] MEDS ORDERED: DUONEB *Not for PRN Use IH SCH (14:00)
[2018-01-20] MEDS: SODIUM CHLORIDE FLUSH SYRINGE 10 ML IV SCH ×2 (14:19→22:58)
[2018-01-20] MEDS: ESTRACE PO SCH (14:19)
[2018-01-20] MEDS: IMDUR PO SCH (14:20)
[2018-01-20] MEDS: PLAVIX PO SCH (14:20)
[2018-01-20] MEDS: HALFPRIN EC PO SCH (14:20)
[2018-01-20] MEDS: DITROPAN XL PO SCH (14:20)
[2018-01-20] MEDS: RANEXA ER PO SCH ×2 (14:21→22:50)
[2018-01-20] MEDS: ARICEPT PO SCH (14:21)
[2018-01-20] MEDS: GLUCOPHAGE PO SCH (14:21)
[2018-01-20] MEDS: LOPRESSOR PO SCH (14:21)
[2018-01-20] MEDS: HEPARIN SUB-Q SCH ×2 (14:22→22:58)
[2018-01-20] MEDS ORDERED: VANCOMYCIN VIAL 750 MG in NACL 0.9% 250ML 250 ML IV SCH (18:00)
--- NOTE | 2018-01-20 20:26 | Consultation ---
Referring Physician: Ricardo Patino INDICATION: 1. Abnormal CT scan. 2. Dysphagia. HISTORY OF PRESENT ILLNESS: The patient is a 77-year-old white female with history of Alzheimer's dementia, non-progressive, been seen by GI for abnormal CT scan. The patient presented and was evaluated for some shortness of breath. In talking to the patient's daughter, she has reported instances where they have to be giving her mother food that is being cut, but also feeling that food is being getting stuck along her esophagus. They reports even suctioning and seen some food material. They report that she is unable to give full history. She does not complain of any significant dysphagia. Denies any nausea, vomiting. Denies any history of reflux. The patient subsequently came to Emergency Room, had a CT scan, which showed some possible food material along the length of the esophagus. GI is consulted to aid in management. No other specific GI problems or complaints. PAST MEDICAL HISTORY: 1. Diabetes. 2. GERD. 3. Asthma. 4. COPD. 5. Alzheimer's dementia. MEDICATIONS: See chart. ALLERGIES: SOMA and FELDENE. SOCIAL HISTORY: Denies alcohol, tobacco or IV drug abuse. FAMILY HISTORY: Negative for colon cancer. REVIEW OF SYSTEMS: GENERAL: Reports weakness. HEENT: No visual complaints or tinnitus. PULMONARY: No shortness of breath. No cough. No chest pain. GASTROINTESTINAL: No specific complaints except for some regurgitation of food material. All points of 13-point review of systems otherwise negative. PHYSICAL EXAMINATION: VITAL SIGNS: Temperature of 98.7, pulse 73, respiration 18, blood pressure 115/58. GENERAL: Fairly thin white female, in no acute distress. HEENT: Pupils equal, round, and reactive. PULMONARY: Rhonchi. CARDIOVASCULAR: Regular rate and rhythm. ABDOMEN: Soft. SKIN: No obvious rashes. LABORATORY DATA: Pertinent for white count of 18.1, hemoglobin and hematocrit of 9.8 and 38.6, platelet count of 327,000. Chem-7 within normal limits. LFTs within normal limits. ASSESSMENT: A 77-year-old female who is admitted for some shortness of breath, now noted to have a CT scan of the chest showing some food material in the esophagus, raising the possibility of pathology including stricture. Management as noted below. PLAN: 1. We will review CT scan. 2. Barium swallow today. 3. Nothing by mouth for now. 4. Consider esophagogastroduodenoscopy based on progress. JOB# [id number] DAWNA/NANO EDWARDS
[2018-01-20] MEDS ORDERED: ROPINIROLE HCL 2 MG PO SCH (22:00)
[2018-01-20] MEDS ORDERED: NON-FORMULARY (Ranitidine Hcl [Zantac 300 Mg Tab] 300 MG) PO SCH (22:00)
[2018-01-20] MEDS: PEPCID IV SCH (22:56)
[2018-01-20] MEDS: PRAVACHOL PO SCH (22:57)
[2018-01-20] MEDS: LANTUS SUB-Q SCH (22:57)
[2018-01-21] MEDS: ZOSYN/NS 3.375GM/50ML 3.375 GM/50 ML BAG IV SCH ×3 (06:20→22:10)
[2018-01-21] MEDS: SYNTHROID PO SCH (06:21)
[2018-01-21] MEDS: DUONEB *Not for PRN Use IH SCH ×3 (08:04→20:11)
[2018-01-21] MEDS: HumaLOG SUB-Q SCH ×3 (08:35→17:50)
[2018-01-21] MEDS: GLUCOPHAGE PO SCH (09:05)
--- NOTE | 2018-01-21 09:14 | Progress Note ---
Assessment and Plan Assessment and plan: Barium swallow, images reviewed Normal esophageal course and caliber, tertiary esophageal contractions. Presence of retained debris/material. Mild waist at the GE junction Chest CTA , image reviewed IMPRESSION: 1. No evidence of large vessel or central pulmonary emboli. No acute consolidation. Coronary artery calcifications. 2. Soft tissue nodular density in right infraglottic larynx may represent secretions versus polypoid lesion. Followup suggested. 3. Capacious esophagus containing particulate/probable ingested material throughout majority of esophagus possibly related to reflux. 4. Bibasilar interstitial prominence and slight endobronchial soft tissue density or mucous plugging primarily in left basilar bronchial airways may be postinfectious/inflammatory or sequelae of aspiration. Exact etiology or significance uncertain, and clinical correlation along with followup may be warranted. 5. Cholelithiasis. 6. Nonobstructing right renal calcification. No significant right hydronephrosis. CT Abdomen IMPRESSION: 1. Cholelithiasis. 2. Constipation. Sepsis due to UTI and aspiration PNA continue abx, pureed diet S/S eval -urine cx growing gram neg rods Dysphagia? s/s eval Capacious esophagus with food debris barium swallow cw stricture; for EGD today GI consulted laryngeal mass? -may be food particle ENT consulted, but Dr Balderrama asked that patient be referred to her clinic outpatient consult with ENT dw pulmonary (most likely to be food particles) Hypertension Cont Antihypertensives CAD (coronary artery disease) Plavix and Imdur Dementia Cont Donepezil Hypothyroidism Cont Levothyroxine OAB (overactive bladder) On Oxybutinin T2DM (type 2 diabetes mellitus) SSI DVT prophylaxis On Heparin History Interval history: Review of systems Constitutional: No fevers, no malaise, no joint pains CVS: No chest pain, no orthopnea, no dyspnea on exertion, no pedal edema GI: No abdominal pain, no diarrhea, no vomiting, no constipation Respiratory: No shortness of breath, no wheezing, no coughing Hospitalist Physical - Physical exam Narrative exam: General.: Appears well, no distress, nontoxic HEENT: Moist mucous membranes, extraocular muscles intact, no lymphadenopathy Neck: supple Cardiac: S1-S2 heard Lungs: clear to auscultation bilaterally Abdomen: soft , nontender, nondistended, bowel sounds positive Extremities: no edema clubbing or cyanosis Skin: no rash or lesions Neurologic: demented, oriented x 1, mumbles rubbish, moves all extremities Psych: child like behavior, pleasantly demented - Constitutional Vitals: Temp Pulse Resp BP Pulse Ox 97.5 F L 85 12 119/59 93 01/21/18 02:28 01/21/18 08:11 01/21/18 08:11 01/21/18 02:28 01/21/18 08:04 General appearance: Present: mild distress, well-nourished Results - Labs CBC & Chem 7: 01/20/18 03:44 01/20/18 03:44 Labs: Laboratory Last Values WBC 18.1 K/mm3 (4.5-11.0) H 01/20/18 03:44 RBC 3.81 M/mm3 (3.65-5.03) 01/20/18 03:44 Hgb 9.8 gm/dl (10.1-14.3) L 01/20/18 03:44 Hct 30.6 % (30.3-42.9) 01/20/18 03:44 MCV 80 fl (79-97) 01/20/18 03:44 MCH 26 pg (28-32) L 01/20/18 03:44 MCHC 32 % (30-34) 01/20/18 03:44 RDW 15.0 % (13.2-15.2) 01/20/18 03:44 Plt Count 327 K/mm3 (140-440) 01/20/18 03:44 Lymph % (Auto) 6.9 % (13.4-35.0) L 01/20/18 03:44 [place] % (Auto) 6.3 % (0.0-7.3) 01/20/18 03:44 Eos % (Auto) 0.8 % (0.0-4.3) 01/20/18 03:44 Baso % (Auto) 0.4 % (0.0-1.8) 01/20/18 03:44 Lymph # 1.3 K/mm3 (1.2-5.4) 01/20/18 03:44 [place] # 1.1 K/mm3 (0.0-0.8) H 01/20/18 03:44 Eos # 0.1 K/mm3 (0.0-0.4) 01/20/18 03:44 Baso # 0.1 K/mm3 (0.0-0.1) 01/20/18 03:44 Seg Neutrophils % 85.6 % (40.0-70.0) H 01/20/18 03:44 Seg Neutrophils # 15.5 K/mm3 (1.8-7.7) H 01/20/18 03:44 PT 12.8 Sec. (12.2-14.9) 01/19/18 16:12 INR 0.92 (0.87-1.13) 01/19/18 16:12 APTT 28.6 Sec. (24.2-36.6) 01/19/18 16:12 VBG pH 7.264 (7.320-7.420) L 01/19/18 14:38 Sodium 137 mmol/L (137-145) 01/20/18 03:44 Potassium 4.5 mmol/L (3.6-5.0) 01/20/18 03:44 Chloride 99.7 mmol/L (98-107) 01/20/18 03:44 Carbon Dioxide 20 mmol/L (22-30) L 01/20/18 03:44 Anion Gap 22 mmol/L 01/20/18 03:44 BUN 20 mg/dL (7-17) H 01/20/18 03:44 Creatinine 0.7 mg/dL (0.7-1.2) 01/20/18 03:44 Estimated GFR > 60 ml/min 01/20/18 03:44 BUN/Creatinine Ratio 29 % 01/20/18 03:44 Glucose 95 mg/dL (65-100) 01/20/18 03:44 POC Glucose 78 (70-105) 01/21/18 07:12 Hemoglobin A1c 5.9 % (4-6) 01/20/18 01:17 Lactic Acid 1.30 mmol/L (0.7-2.0) 01/20/18 01:17 Calcium 8.6 mg/dL (8.4-10.2) 01/20/18 03:44 Magnesium 1.50 mg/dL (1.7-2.3) L 01/19/18 16:12 Total Bilirubin 0.20 mg/dL (0.1-1.2) 01/20/18 03:44 Direct Bilirubin < 0.2 mg/dL (0-0.2) 01/19/18 16:12 Indirect Bilirubin 0.0 mg/dL 01/19/18 16:12 AST 10 units/L (5-40) 01/20/18 03:44 ALT 5 units/L (7-56) L 01/20/18 03:44 Alkaline Phosphatase 51 units/L (35-129) 01/20/18 03:44 Troponin T 0.027 ng/mL (0.00-0.029) 01/19/18 14:38 NT-Pro-B Natriuret Pep 7527 pg/mL (0-900) H 01/19/18 14:38 Total Protein 6.5 g/dL (6.3-8.2) 01/20/18 03:44 Albumin 3.7 g/dL (3.9-5) L 01/20/18 03:44 Albumin/Globulin Ratio 1.3 % 01/20/18 03:44 Urine Color Yellow (Yellow) 01/19/18 17:20 Urine Turbidity Clear (Clear) 01/19/18 17:20 Urine pH 5.0 (5.0-7.0) 01/19/18 17:20 Ur Specific [place] 1.014 (1.003-1.030) 01/19/18 17:20 Urine Protein 100 mg/dl mg/dL (Negative) 01/19/18 17:20 Urine Glucose (UA) Neg mg/dL (Negative) 01/19/18 17:20 Urine Ketones Neg mg/dL (Negative) 01/19/18 17:20 Urine Blood Sm (Negative) 01/19/18 17:20 Urine Nitrite Pos (Negative) 01/19/18 17:20 Urine Bilirubin Neg (Negative) 01/19/18 17:20 Urine Urobilinogen < 2.0 mg/dL (<2.0) 01/19/18 17:20 Ur Leukocyte Esterase Lg (Negative) 01/19/18 17:20 Urine WBC (Auto) > 182.0 /HPF (0.0-6.0) H 01/19/18 17:20 Urine RBC (Auto) 49.0 /HPF (0.0-6.0) 01/19/18 17:20 U Epithel Cells (Auto) 1.0 /HPF (0-13.0) 01/19/18 17:20 Urine Bacteria (Auto) 4+ /HPF (Negative) 01/19/18 17:20 Urine WBC Clumps 3+ /HPF 01/19/18 17:20 Urine Mucus Few /HPF 01/19/18 17:20
[2018-01-21] MEDS: LOPRESSOR PO SCH (10:32)
[2018-01-21] MEDS: IMDUR PO SCH (10:32)
[2018-01-21] MEDS: RANEXA ER PO SCH (10:32)
[2018-01-21] MEDS: HALFPRIN EC PO SCH (10:32)
[2018-01-21] MEDS: PLAVIX PO SCH (10:43)
[2018-01-21] MEDS: NORVASC PO SCH (10:43)
[2018-01-21] MEDS: APRESOLINE PO SCH (10:44)
[2018-01-21] MEDS: ARICEPT PO SCH (10:44)
[2018-01-21] MEDS: DITROPAN XL PO SCH (10:45)
[2018-01-21] MEDS: ESTRACE PO SCH (10:45)
[2018-01-21] MEDS: COZAAR PO SCH (10:45)
--- NOTE | 2018-01-21 11:15 | Consultation ---
History of Present Illness Consult date: 01/21/18 Requesting physician: DIONTE HANNAH Reason for consult: other (Endobronchial mass) History of present illness: This is a 77 year old skilled nursing resident that was sent for evaluation of "respiratory distress". On presentation to the ED not apparently documented. Respiratory rate was 19 and she was afebrile. She was transported via EMS for further care and evaluation. The patient has a history of advanced dementia, coronary artery disease, hypothyroidism hypertension and GERD. She is unable to provide any useful historical information. She is however awake and alert and her daughter is at the bedside. She had a CT chest done, which showed laryngeal mass and endobronchial lesion. I have been consulted with respect to evaluation of the endobronchial lesion. Thank you for the consult Patient was seen and examined. Vitals, labs, medications, chart and imaging were reviewed. History was obtained from the daughter who was at the bedside at the time of my evaluation Medications and Allergies Allergies Allergy/AdvReac Type Severity Reaction Status Date / Time carisoprodol [From Soma] Allergy Unknown Verified 04/09/14 11:03 piroxicam [From Feldene] Allergy cant Verified 04/09/14 11:03 remember ended up in ER Home Medications Medication Instructions Recorded Confirmed Last Taken Type Aspirin EC [Aspirin Enteric Coated 81 mg PO DAILY 04/07/14 01/20/18 04/13/14 10: 00 History TAB] Clopidogrel [Plavix] 75 mg PO QDAY 04/07/14 01/20/18 04/13/14 22:00 History Amlodipine Bes/Olmesartan Med 1 tab PO DAILY 04/08/14 01/20/18 04/13/14 10:00 History [Abiola 10-20 mg] Donepezil [Aricept] 10 mg PO DAILY 04/08/14 01/20/18 04/13/14 10:00 History Estradiol [Estrace] 1 mg PO DAILY 04/08/14 01/20/18 04/13/14 10:00 History Gabapentin Enacarbil [Horizant] 600 mg PO TID 04/08/14 01/20/18 04/13/14 10:00 History Hydralazine HCl [Apresoline TAB] 25 mg PO BID 04/08/14 01/20/18 04/14/14 05:00 History Isosorbide Mononitrate [Isosorbide 60 mg PO DAILY 04/08/14 01/20/18 04/14/14 05: 00 History Mononitrate ER (IMDUR)] Levothyroxine (Nf) [Synthroid (Nf)] 200 mcg PO DAILY 04/08/14 01/20/18 04/14/14 05:00 History Lovastatin [Altoprev] 40 mg PO DAILY 04/08/14 01/20/18 04/13/14 10:00 History Metoprolol [Lopressor TAB] 25 mg PO DAILY 04/08/14 01/20/18 04/14/14 05:00 History Oxybutynin Xl [Ditropan Xl] 15 mg PO DAILY 04/08/14 01/20/18 04/13/14 10:00 History Ranitidine HCl [Zantac 300 MG TAB] 300 mg PO HS 04/08/14 01/20/18 04/13/14 13: 00 History Ranolazine [Ranexa] 1 tab PO BID 04/08/14 01/20/18 04/13/14 18:30 History Ropinirole HCl [Requip Xl] 2 mg PO HS 04/08/14 01/20/18 04/13/14 22:00 History Insulin Glargine,Hum.rec.anlog 15 unit SQ QHS #1 bottle 04/17/14 01/20/18 Unknown Rx [Lantus] Syringe,Needle,Insuln,Sf,0.3ML 1 each MC QHS #30 disp.syrin 04/17/14 01/20/18 Unknown Rx [[place] Insulin Syringe] metFORMIN [Glucophage] 500 mg PO QAMDIAB #60 tablet 04/17/14 01/20/18 Unknown Rx oxyCODONE /ACETAMINOPHEN [Percocet 1 tab PO Q6H PRN #60 tablet 04/17/14 Unknown Rx 5/325 mg] Active Meds: Active Medications Acetaminophen (Tylenol) 650 mg PO Q4H PRN PRN Reason: Pain MILD(1-3)/Fever >100.5/MACIAS Albuterol/Ipratropium (Duoneb *Not For Prn Use*) 1 ampul IH TIDRT [facility] Last Admin: 01/21/18 08:04 Dose: 1 ampul Amlodipine Besylate (Norvasc) 10 mg PO DAILY [facility] Last Admin: 01/21/18 10:43 Dose: Not Given Aspirin (Halfprin Ec) 81 mg PO DAILY [facility] Last Admin: 01/21/18 10:32 Dose: Not Given Clopidogrel Bisulfate (Plavix) 75 mg PO QDAY [facility] Last Admin: 01/21/18 10:43 Dose: Not Given Donepezil HCl (Aricept) 10 mg PO DAILY [facility] Last Admin: 01/21/18 10:44 Dose: Not Given Estradiol (Estrace) 1 mg PO DAILY [facility] Last Admin: 01/21/18 10:45 Dose: Not Given Famotidine (Pepcid) 20 mg IV DAILY@2200 [facility] Last Admin: 01/20/18 22:56 Dose: 20 mg Heparin Sodium (Porcine) (Heparin) 5,000 unit SUB-Q Q12HR [facility] Last Admin: 01/20/18 22:58 Dose: 5,000 unit Hydralazine HCl (Apresoline) 25 mg PO BID [facility] Last Admin: 01/21/18 10:44 Dose: Not Given Piperacillin Sod/Tazobactam Sod (Zosyn/Ns 3.375gm/50ml) 3.375 gm in 50 mls @ 100 mls/hr IV Q8HR [facility]; Protocol Last Admin: 01/21/18 06:20 Dose: 100 mls/hr Insulin Glargine (Lantus) 15 units SUB-Q QHS [facility] Last Admin: 01/20/18 22:57 Dose: 15 units Insulin Human Lispro (Humalog) 0 unit SUB-Q ACHS [facility]; Protocol Last Admin: 01/21/18 08:35 Dose: Not Given Isosorbide Mononitrate (Imdur) 60 mg PO DAILY [facility] Last Admin: 01/21/18 10:32 Dose: Not Given Levothyroxine Sodium (Synthroid) 200 mcg PO DAILY@0600 [facility] Last Admin: 01/21/18 06:21 Dose: 200 mcg Losartan Potassium (Cozaar) 50 mg PO DAILY [facility] Last Admin: 01/21/18 10:45 Dose: Not Given Metformin HCl (Glucophage) 500 mg PO QAMDIAB [facility] Last Admin: 01/21/18 09:05 Dose: Not Given Metoprolol Tartrate (Lopressor) 25 mg PO DAILY [facility] Last Admin: 01/21/18 10:32 Dose: Not Given Miscellaneous Medication (Ropinirole Hcl [Requip Xl]) 2 mg PO HS [facility] Morphine Sulfate (Morphine) 2 mg IV Q4H PRN PRN Reason: Pain, Moderate (4-6) Ondansetron HCl (Zofran) 4 mg IV Q8H PRN PRN Reason: Nausea And Vomiting Oxybutynin Chloride (Ditropan Xl) 15 mg PO DAILY [facility] Last Admin: 01/21/18 10:45 Dose: Not Given Oxycodone/Acetaminophen (Percocet 5/325) 1 tab PO Q6H PRN PRN Reason: Mod Pain Unrelieved by [place] Pravastatin Sodium (Pravachol) 40 mg PO QHS [facility] Last Admin: 01/20/18 22:57 Dose: 40 mg Ranolazine (Ranexa Er) 500 mg PO BID [facility] Last Admin: 01/21/18 10:32 Dose: Not Given Sodium Chloride (Sodium Chloride Flush Syringe 10 Ml) 10 ml IV BID [facility] Last Admin: 01/20/18 22:58 Dose: 10 ml Sodium Chloride (Sodium Chloride Flush Syringe 10 Ml) 10 ml IV PRN PRN PRN Reason: LINE FLUSH Physical Examination Vital signs: Vital Signs Pulse Resp Pulse Ox 106 H 17 100 01/19/18 13:34 01/19/18 13:34 01/19/18 13:34 Results - Laboratory Findings CBC and BMP: 01/20/18 03:44 01/20/18 03:44 PT/INR, D-dimer PT 12.8 Sec. (12.2-14.9) 01/19/18 16:12 INR 0.92 (0.87-1.13) 01/19/18 16:12 Abnormal lab findings: Abnormal Labs 01/19/18 01/19/18 01/19/18 14:38 14:38 14:38 WBC 16.9 H Hgb MCH 25 L Lymph % (Auto) 4.9 L Lymph # 0.[address] [place] # 0.9 H Seg Neutrophils % 87.2 H Seg Neutrophils # 14.7 H VBG pH Carbon Dioxide BUN 24 H Glucose 168 H POC Glucose Lactic Acid Magnesium ALT NT-Pro-B Natriuret Pep 7527 H Albumin Urine WBC (Auto) 01/19/18 01/19/18 01/19/18 14:38 16:12 16:12 WBC Hgb MCH Lymph % (Auto) Lymph # [place] # Seg Neutrophils % Seg Neutrophils # VBG pH 7.264 L Carbon Dioxide BUN Glucose POC Glucose Lactic Acid 5.40 H* Magnesium 1.50 L ALT 6 L NT-Pro-B Natriuret Pep Albumin Urine WBC (Auto) 01/19/18 01/19/18 01/20/18 17:20 19:46 03:44 WBC 18.1 H Hgb 9.8 L MCH 26 L Lymph % (Auto) 6.9 L Lymph # [place] # 1.1 H Seg Neutrophils % 85.6 H Seg Neutrophils # 15.5 H VBG pH Carbon Dioxide BUN Glucose POC Glucose Lactic Acid 2.50 H* Magnesium ALT NT-Pro-B Natriuret Pep Albumin Urine WBC (Auto) > 182.0 H 01/20/18 01/20/18 01/20/18 03:44 10:08 17:11 WBC Hgb MCH Lymph % (Auto) Lymph # [place] # Seg Neutrophils % Seg Neutrophils # VBG pH Carbon Dioxide 20 L BUN 20 H Glucose POC Glucose 152 H 169 H Lactic Acid Magnesium ALT 5 L NT-Pro-B Natriuret Pep Albumin 3.7 L Urine WBC (Auto) 01/20/18 22:26 WBC Hgb MCH Lymph % (Auto) Lymph # [place] # Seg Neutrophils % Seg Neutrophils # VBG pH Carbon Dioxide BUN Glucose POC Glucose 129 H Lactic Acid Magnesium ALT NT-Pro-B Natriuret Pep Albumin Urine WBC (Auto) Assessment and Plan Diagnosis -Endobronchial lesion Chest CTA , images personally reviewed Radiologist report 1. No evidence of large vessel or central pulmonary emboli. No acute consolidation. Coronary artery calcifications. 2. Soft tissue nodular density in right infraglottic larynx may represent secretions versus polypoid lesion. Followup suggested. 3. Capacious esophagus containing particulate/probable ingested material throughout majority of esophagus possibly related to reflux. 4. Bibasilar interstitial prominence and slight endobronchial soft tissue density or mucous plugging primarily in left basilar bronchial airways may be postinfectious/inflammatory or sequelae of aspiration. Exact etiology or significance uncertain, and clinical correlation along with followup may be warranted. 5. Cholelithiasis. 6. Nonobstructing right renal calcification. No significant right hydronephrosis. 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 The daughter endorses, coughing with her meals. At this time will manage conservatively. Get a swallow evaluation and ensure aspiration precautions. I had extensive discussions with the daughter that with recurrent aspiration, a PEG tube would help minimize but not completely reduce the risk of aspiration. I also discussed that her dementia will progress and her aspiration risk will continue to increase. She expressed concern at her code status..and I discussed goals of care with her. She states her siblings favor a DNR/DNI status but they will have discussion with her father, and also pursue getting the necessary documentation for POA-health. Recommendations -Aspiration precautions -Objective assessment of swallow function -Antibiotics to treat HAP ( MRSA and GNR coverage) -No indication for bronchoscopy or further work up of the endobronchial lesion at this time -Agree with ENT evaluation -Follow up imaging in the next 2-3 months to re-evaluate the lesion -Feeding tube placement -Await EGD - Supplemental oxygen as needed to keep O2 sats>90% -
[2018-01-21] MEDS: HEPARIN SUB-Q SCH ×2 (12:20→22:10)
[2018-01-21] MEDS: SODIUM CHLORIDE FLUSH SYRINGE 10 ML IV SCH (12:22)
[2018-01-21] MEDS: D5/0.45NS 1,000 ML IV SCH ×2 (12:23→16:33)
[2018-01-21] MEDS ORDERED: NACL 0.9% 1000 ML 1,000 ML ONE (14:41)
[2018-01-21] MEDS ORDERED: WATER FOR IRRIG STERILE IR ONE (15:35)
[2018-01-21] MEDS ORDERED: DIPRIVAN 10 MG/ML IV ONE (15:37)
--- NOTE | 2018-01-21 15:45 | Anesthesia Consultation ---
Anesthesia Consult and Med Hx Date of service: 01/21/18 - Airway Anesthetic Teeth Evaluation: Dentures (upper and lower) - Pulmonary Hx Smoking: Yes (Quit smoking 10 years ago; started @ 8 years 1.5 PPD) Hx Asthma: Yes COPD: Yes Hx Pneumonia: No - Cardiovascular System Hx Hypertension: Yes (10 YRS; high cholesterol) Hx Coronary Artery Disease: Yes Hx Heart Attack/AMI: No Hx Angina: No Hx Percutaneous Transluminal Coronary Angioplasty (PTCA): Yes - Central Nervous System Hx Neuromuscular Disorder: Yes (memory loss; takes aeroset) Hx Seizures: No CVA: No Hx Back Pain: Yes (Right side is worse) Hx Psychiatric Problems: Yes (severe dementia) - Gastrointestinal Hx Gastroesophageal Reflux Disease: Yes (takes meds, says helps, dysphagea) - Endocrine Hx Renal Disease: No Hx Liver Disease: No Hx Insulin Dependent Diabetes: Yes Hx Non-Insulin Dependent Diabetes: Yes Hx Hypothyroidism: Yes (20yrs) - Hematic Hx Anemia: No - Other Systems Hx Alcohol Use: No Hx Substance Use: No Hx Cancer: No
--- NOTE | 2018-01-21 15:45 | Anesthesia Day of Surgery ---
Anesthesia Day of Surgery - Day of Surgery Patient Examined: Yes Patient H&P Reviewed: Yes Patient is NPO: Yes Beta Blockers: Yes
--- NOTE | 2018-01-21 16:12 | Post Operative Note ---
Pre-op diagnosis: dysphagia Post-op diagnosis: same Findings: EGD: hiatal hernia - mild stricture g-e junction (Stauffer 60 F dilation performed) - gastritis - negative other Procedure: EGD Anesthesia: MAC Surgeon: BONNY LONGORIA Estimated blood loss: none Pathology: list Specimen disposition: to lab Condition: stable Disposition: floor
[2018-01-21] MEDS ORDERED: D5/0.45NS 1,000 ML IV ONE (16:23)
[2018-01-21] MEDS ORDERED: XYLOCAINE MPF 2% ONE (16:30)
--- NOTE | 2018-01-21 20:35 | Operative Report ---
PROCEDURE: EGD with cold biopsies and Stauffer dilatation. INDICATION: 1. Dysphagia. 2. Abnormal chest CT scan. 3. Weight loss. MEDICATIONS: Propofol per PRODUCE WEIGHER. COMPLICATIONS: None. DESCRIPTION OF PROCEDURE: The patient was brought to procedure suite. The patient had the procedure discussed with her daughter at length. All the risks, complications, and benefits were discussed, after which verbal consent was gotten for the procedure to perform. The patient was sent decubitus position. Mouth block was placed in the patient's oral cavity. After adequate sedation medication as above, the endoscope was introduced into the mouth and brought to the second portion of duodenum. Retroflexion view performed. The patient's vital signs remained stable throughout the procedure. FINDINGS: There was noted to be mild stricture noted at GE junction 36 cm from the gums. This was traversed and integrated in the stomach. There was small hiatal hernia at GE junction. The esophagus otherwise appeared to be normal. Mild antral gastritis noted. Biopsies were taken and sent to pathology. Remaining stomach otherwise appeared to be normal. The duodenum appeared to be normal. Retroflexion view performed in the stomach showed no other pathology other than noted above. After through the standard technique, Stauffer dilatation using a 60 Spanish balloon was performed. Post-procedurally, the patient was satisfactory. The patient tolerated the procedure well. No complications during the procedure. IMPRESSION: 1. Hiatal hernia. 2. 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 3. Gastritis, biopsies performed. 4. Otherwise, normal esophagogastroduodenoscopy. RECOMMENDATIONS: 1. Follow up biopsy results. 2. Stool for Helicobacter pylori, if positive, treat. 3. Soft diet. 4. If tolerating by mouth before noon, okay to discharge from gastroenterology standpoint. JOB# [id number] CAB/NTS
[2018-01-21] MEDS: PEPCID IV SCH (22:05)
[2018-01-22] MEDS: RANEXA ER PO SCH ×3 (01:28→22:32)
[2018-01-22] MEDS: PRAVACHOL PO SCH ×2 (01:28→22:34)
[2018-01-22] MEDS: APRESOLINE PO SCH ×3 (01:30→22:35)
--- NOTE | 2018-01-22 07:10 | Progress Note ---
Assessment and Plan Diagnosis -Endobronchial lesion Chest CTA , images personally reviewed Radiologist report 1. No evidence of large vessel or central pulmonary emboli. No acute consolidation. Coronary artery calcifications. 2. Soft tissue nodular density in right infraglottic larynx may represent secretions versus polypoid lesion. Followup suggested. 3. Capacious esophagus containing particulate/probable ingested material throughout majority of esophagus possibly related to reflux. 4. Bibasilar interstitial prominence and slight endobronchial soft tissue density or mucous plugging primarily in left basilar bronchial airways may be postinfectious/inflammatory or sequelae of aspiration. Exact etiology or significance uncertain, and clinical correlation along with followup may be warranted. 5. Cholelithiasis. 6. Nonobstructing right renal calcification. No significant right hydronephrosis. 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 The daughter endorses, coughing with her meals. At this time will manage conservatively. Get a swallow evaluation and ensure aspiration precautions. I had extensive discussions with the daughter that with recurrent aspiration, a PEG tube would help minimize but not completely reduce the risk of aspiration. I also discussed that her dementia will progress and her aspiration risk will continue to increase. She expressed concern at her code status..and I discussed goals of care with her. She states her siblings favor a DNR/DNI status but they will have discussion with her father, and also pursue getting the necessary documentation for POA-health. Recommendations -Aspiration precautions -Objective assessment of swallow function, done awaiting results -Antibiotics to treat HAP ( MRSA and GNR coverage)- de-escalate based on [place] -No indication for bronchoscopy or further work up of the endobronchial lesion at this time -Follow up imaging in the next 2-3 months to re-evaluate the lesion -Feeding tube placement, need goals of care discussion with the family - Supplemental oxygen as needed to keep O2 sats>90% - Subjective Date of service: 01/22/18 Principal diagnosis: Sepsis, Endobronchial lesion, aspiration pneumonia Interval history: Patient seen and examined. Vitals, labs, medications, chart reviewed. No acute overnight events reported by the RN. Patient denies any chest pain or difficulty breathing. Had speech evaluation and modified barium swallow study today. Objective - Exam Narrative Exam: General.: Appears well, no distress, nontoxic HEENT: Moist mucous membranes, extraocular muscles intact, no lymphadenopathy Neck: supple Cardiac: S1-S2 heard Lungs: clear to auscultation bilaterally Abdomen: soft , nontender, nondistended, bowel sounds positive Extremities: no edema clubbing or cyanosis Skin: no rash or lesions Neurologic: demented, oriented x 1, mumbles rubbish, moves all extremities Psych: child like behavior, pleasantly demented Vital Signs - 12hr 01/21/18 01/21/18 01/21/18 20:00 20:14 20:27 Temperature 98.6 F Pulse Rate 76 Pulse Rate [ 79 Anterior Bilateral] Respiratory 18 Rate Respiratory 15 Rate [Anterior Bilateral] Blood Pressure 123/64 O2 Sat by Pulse 94 97 Oximetry 01/21/18 01/22/18 01/22/18 20:31 04:14 04:15 Temperature 98.2 F Pulse Rate 68 67 Pulse Rate [ 85 Anterior Bilateral] Respiratory 20 Rate Respiratory 15 Rate [Anterior Bilateral] Blood Pressure 127/62 O2 Sat by Pulse 98 100 Oximetry CBC and BMP: 01/23/18 11:52 01/23/18 11:52 ABG, PT/INR, D-dimer: PT/INR, D-dimer PT 12.8 Sec. (12.2-14.9) 01/19/18 16:12 INR 0.92 (0.87-1.13) 01/19/18 16:12 Abnormal lab findings: Abnormal Labs 01/19/18 01/19/18 01/19/18 14:38 14:38 14:38 WBC 16.9 H Hgb MCH 25 L Lymph % (Auto) 4.9 L Lymph # 0.8 L [place] # 0.9 H Seg Neutrophils % 87.2 H Seg Neutrophils # 14.7 H VBG pH Carbon Dioxide BUN 24 H Glucose 168 H POC Glucose Lactic Acid Magnesium ALT NT-Pro-B Natriuret Pep 7527 H Albumin Urine WBC (Auto) 01/19/18 01/19/18 01/19/18 14:38 16:12 16:12 WBC Hgb MCH Lymph % (Auto) Lymph # [place] # Seg Neutrophils % Seg Neutrophils # VBG pH 7.264 L Carbon Dioxide BUN Glucose POC Glucose Lactic Acid 5.40 H* Magnesium 1.50 L ALT 6 L NT-Pro-B Natriuret Pep Albumin Urine WBC (Auto) 01/19/18 01/19/18 01/20/18 17:20 19:46 03:44 WBC 18.1 H Hgb 9.8 L MCH 26 L Lymph % (Auto) 6.9 L Lymph # [place] # 1.1 H Seg Neutrophils % 85.6 H Seg Neutrophils # 15.5 H VBG pH Carbon Dioxide BUN Glucose POC Glucose Lactic Acid 2.50 H* Magnesium ALT NT-Pro-B Natriuret Pep Albumin Urine WBC (Auto) > 182.0 H 01/20/18 01/20/18 01/20/18 03:44 10:08 17:11 WBC Hgb MCH Lymph % (Auto) Lymph # [place] # Seg Neutrophils % Seg Neutrophils # VBG pH Carbon Dioxide 20 L BUN 20 H Glucose POC Glucose 152 H 169 H Lactic Acid Magnesium ALT 5 L NT-Pro-B Natriuret Pep Albumin 3.7 L Urine WBC (Auto) 01/20/18 22:26 WBC Hgb MCH Lymph % (Auto) Lymph # [place] # Seg Neutrophils % Seg Neutrophils # VBG pH Carbon Dioxide BUN Glucose POC Glucose 129 H Lactic Acid Magnesium ALT NT-Pro-B Natriuret Pep Albumin Urine WBC (Auto)
[2018-01-22] MEDS: HumaLOG SUB-Q SCH ×5 (07:30→22:33)
[2018-01-22] MEDS: GLUCOPHAGE PO SCH (10:29)
[2018-01-22] MEDS: ARICEPT PO SCH ×2 (10:30→15:20)
[2018-01-22] MEDS: COZAAR PO SCH (10:30)
[2018-01-22] MEDS: ESTRACE PO SCH ×2 (10:30→15:23)
[2018-01-22] MEDS: DITROPAN XL PO SCH ×2 (10:30→15:22)
[2018-01-22] MEDS: NORVASC PO SCH (10:31)
[2018-01-22] MEDS: DUONEB *Not for PRN Use IH SCH ×4 (10:51→20:50)
[2018-01-22] MEDS: HEPARIN SUB-Q SCH ×2 (11:09→22:35)
--- NOTE | 2018-01-22 11:35 | Gastroenterology Progress Note ---
Assessment and Plan 1.dysphagia -s/p EGD that revealed a hiatal hernia, mild sticture GE junction (dilated), and gastritis -bx results pending -currently pt is NPO with MBS pending for today to assess risk for aspiration -dietary recommendations per MARKETING ANALYTICS SPECIALIST pending results -continue supportive care Subjective Date of service: 01/22/18 Principal diagnosis: dysphagia Interval history: No acute distress or events overnight. Objective - Constitutional Vitals: Temp Pulse Resp BP Pulse Ox 98.2 F 73 16 150/74 98 01/22/18 08:23 01/22/18 10:54 01/22/18 10:54 01/22/18 08:23 01/22/18 10:00 General appearance: no acute distress - Respiratory Respiratory: bilateral: diminished (anterior) - Cardiovascular Rhythm: regular Heart Sounds: Present: S1 & S2 - Gastrointestinal General gastrointestinal: Present: soft, non-tender, non-distended, normal bowel sounds - Labs CBC & Chem 7: 01/20/18 03:44 01/20/18 03:44 Labs: Laboratory Results - last 24 hr 01/21/18 01/21/18 01/22/18 17:43 23:16 08:31 POC Glucose 74 75 108 H
[2018-01-22] MEDS: D5/0.45NS 1,000 ML IV SCH (13:14)
[2018-01-22] MEDS: ZOSYN/NS 3.375GM/50ML 3.375 GM/50 ML BAG IV SCH ×3 (13:15→22:32)
[2018-01-22] MEDS: SODIUM CHLORIDE FLUSH SYRINGE 10 ML IV SCH ×3 (13:21→22:36)
--- NOTE | 2018-01-22 14:51 | Fluoroscopy Report ---
MODIFIED BARIUM SWALLOW History: dysphagia. Findings: Video radiography was provided by the radiologist for speech therapy to assess the swallowing mechanism. 1 fluoroscopic image was captured. Impression: Successful modified barium swallow.
[2018-01-22] MEDS: IMDUR PO SCH (15:17)
[2018-01-22] MEDS: HALFPRIN EC PO SCH (15:18)
[2018-01-22] MEDS: PLAVIX PO SCH (15:19)
[2018-01-22] MEDS: LOPRESSOR PO SCH (15:20)
[2018-01-22] MEDS: SYNTHROID PO SCH (15:22)
--- NOTE | 2018-01-22 16:15 | Progress Note ---
Assessment and Plan / Sepsis due to UTI and aspiration PNA - continue abx, - urine cx growing Klebsiella /Esophagus stricture barium swallow cw stricture; GI consulted, s/p EGD that revealed a hiatal hernia , mild sticture GE junction (dilated), and gastritis, bx results pending s/p MBS today, speech recommended mechanical soft diet /laryngeal mass? -may be food particle ENT consulted, but Dr Balderrama asked that patient be referred to her clinic dw pulmonary (most likely to be food particles), no abnormality on MBS /Hypertension , a Cont Antihypertensives /CAD (coronary artery disease), cont Plavix and Imdur /Dementia, Cont Donepezil / Hypothyroidism, Cont Levothyroxine / OAB (overactive bladder), On Oxybutinin /T2DM (type 2 diabetes mellitus), Mx with SSI /DVT prophylaxis On Heparin Disposition: Likely back to residential if tolerates diet Radiological study: Barium swallow: Normal esophageal course and caliber, tertiary esophageal contractions. Presence of retained debris/material. Mild waist at the GE junction Chest CTA 1. No evidence of large vessel or central pulmonary emboli. No acute consolidation. Coronary artery calcifications. 2. Soft tissue nodular density in right infraglottic larynx may represent secretions versus polypoid lesion. Followup suggested. 3. Capacious esophagus containing particulate/probable ingested material throughout majority of esophagus possibly related to reflux. 4. Bibasilar interstitial prominence and slight endobronchial soft tissue density or mucous plugging primarily in left basilar bronchial airways may be postinfectious/inflammatory or sequelae of aspiration. Exact etiology or significance uncertain, and clinical correlation along with followup may be warranted. 5. Cholelithiasis. 6. Nonobstructing right renal calcification. No significant right hydronephrosis. CT Abdomen IMPRESSION: 1. Cholelithiasis. 2. Constipation. Hospitalist Physical General.: Appears well, no distress, nontoxic HEENT: Moist mucous membranes, extraocular muscles intact, no lymphadenopathy Neck: supple Cardiac: S1-S2 heard Lungs: clear to auscultation bilaterally Abdomen: soft , nontender, nondistended, bowel sounds positive Extremities: no edema clubbing or cyanosis Skin: no rash or lesions Neurologic: demented, oriented x 1, mumbles rubbish, moves all extremities Psych: child like behavior, pleasantly demented Subjective Date of service: 01/22/18 Principal diagnosis: dysphagia Interval history: Patient seen and examined. Medical records and medication list reviewed. No acute event overnight noted by the RN. Patient denies any chest pain or difficulty breathing. Patient had speech eval and modified barium swallow study today. Discussed plan of care at bedside with patient's son. Objective - Constitutional Vitals: Vital Signs - 12hr 01/22/18 01/22/18 01/22/18 08:23 10:00 10:54 Temperature 98.2 F Pulse Rate 79 60 Pulse Rate [ 73 Anterior Bilateral] Pulse Rate [ 67 Apical] Pulse Rate [ 80 Throughout] Respiratory 16 16 Rate Respiratory 16 Rate [Anterior Bilateral] Respiratory 18 Rate [ Throughout] Blood Pressure 150/74 Blood Pressure [Left] O2 Sat by Pulse 99 99 Oximetry 01/22/18 01/22/18 01/22/18 15:17 15:20 15:31 Temperature Pulse Rate 81 81 81 Pulse Rate [ Anterior Bilateral] Pulse Rate [ Apical] Pulse Rate [ Throughout] Respiratory 18 Rate Respiratory Rate [Anterior Bilateral] Respiratory Rate [ Throughout] Blood Pressure 120/58 120/58 Blood Pressure 120/58 [Left] O2 Sat by Pulse Oximetry - Labs CBC & Chem 7: 01/20/18 03:44 01/20/18 03:44 Labs: Abnormal lab results 01/22/18 01/22/18 Range/Units 08:31 15:56 POC Glucose 108 H 213 H (70-105)
[2018-01-22] MEDS: LANTUS SUB-Q SCH ×2 (20:48→22:35)
[2018-01-22] MEDS: PEPCID IV SCH (22:33)
[2018-01-23] MEDS: ZOSYN/NS 3.375GM/50ML 3.375 GM/50 ML BAG IV SCH (06:09)
[2018-01-23] MEDS: SYNTHROID PO SCH (06:10)
[2018-01-23] MEDS: HumaLOG SUB-Q SCH ×2 (08:30→12:18)
--- NOTE | 2018-01-23 09:19 | Progress Note ---
Assessment and Plan Diagnosis -Endobronchial lesion Chest CTA , images personally reviewed Radiologist report 1. No evidence of large vessel or central pulmonary emboli. No acute consolidation. Coronary artery calcifications. 2. Soft tissue nodular density in right infraglottic larynx may represent secretions versus polypoid lesion. Followup suggested. 3. Capacious esophagus containing particulate/probable ingested material throughout majority of esophagus possibly related to reflux. 4. Bibasilar interstitial prominence and slight endobronchial soft tissue density or mucous plugging primarily in left basilar bronchial airways may be postinfectious/inflammatory or sequelae of aspiration. Exact etiology or significance uncertain, and clinical correlation along with followup may be warranted. 5. Cholelithiasis. 6. Nonobstructing right renal calcification. No significant right hydronephrosis. 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 The daughter endorses, coughing with her meals. At this time will manage conservatively. Get a swallow evaluation and ensure aspiration precautions. I had extensive discussions with the daughter that with recurrent aspiration, a PEG tube would help minimize but not completely reduce the risk of aspiration. I also discussed that her dementia will progress and her aspiration risk will continue to increase. She expressed concern at her code status..and I discussed goals of care with her. She states her siblings favor a DNR/DNI status but they will have discussion with her father, and also pursue getting the necessary documentation for POA-health. Recommendations -Aspiration precautions -Objective assessment of swallow function -Antibiotics to treat HAP ( MRSA and GNR coverage) -No indication for bronchoscopy or further work up of the endobronchial lesion at this time -Agree with ENT evaluation -Follow up imaging in the next 2-3 months to re-evaluate the lesion -Feeding tube placement -Await EGD - Supplemental oxygen as needed to keep O2 sats>90% - Subjective Date of service: 01/23/18 Principal diagnosis: dysphagia Objective Vital Signs - 12hr 01/22/18 01/22/18 01/23/18 22:00 22:35 02:18 Temperature 97.6 F Pulse Rate 88 Respiratory 18 Rate Respiratory 20 Rate [Bilateral Foot] Blood Pressure 98/49 124/65 O2 Sat by Pulse 96 Oximetry 01/23/18 07:46 Temperature 98.3 F Pulse Rate Respiratory 20 Rate Respiratory Rate [Bilateral Foot] Blood Pressure 140/69 O2 Sat by Pulse Oximetry CBC and BMP: 01/20/18 03:44 01/20/18 03:44 ABG, PT/INR, D-dimer: PT/INR, D-dimer PT 12.8 Sec. (12.2-14.9) 01/19/18 16:12 INR 0.92 (0.87-1.13) 01/19/18 16:12 Abnormal lab findings: Abnormal Labs 01/19/18 01/19/18 01/19/18 14:38 14:38 14:38 WBC 16.9 H Hgb MCH 25 L Lymph % (Auto) 4.9 L Lymph # 0.8 L [place] # 0.9 H Seg Neutrophils % 87.2 H Seg Neutrophils # 14.7 H VBG pH Carbon Dioxide BUN 24 H Glucose 168 H POC Glucose Lactic Acid Magnesium ALT NT-Pro-B Natriuret Pep 7527 H Albumin Urine WBC (Auto) 01/19/18 01/19/18 01/19/18 14:38 16:12 16:12 WBC Hgb MCH Lymph % (Auto) Lymph # [place] # Seg Neutrophils % Seg Neutrophils # VBG pH 7.264 L Carbon Dioxide BUN Glucose POC Glucose Lactic Acid 5.40 H* Magnesium 1.50 L ALT 6 L NT-Pro-B Natriuret Pep Albumin Urine WBC (Auto) 01/19/18 01/19/18 01/20/18 17:20 19:46 03:44 WBC 18.1 H Hgb 9.8 L MCH 26 L Lymph % (Auto) 6.9 L Lymph # [place] # 1.1 H Seg Neutrophils % 85.6 H Seg Neutrophils # 15.5 H VBG pH Carbon Dioxide BUN Glucose POC Glucose Lactic Acid 2.50 H* Magnesium ALT NT-Pro-B Natriuret Pep Albumin Urine WBC (Auto) > 182.0 H 01/20/18 01/20/18 01/20/18 03:44 10:08 17:11 WBC Hgb MCH Lymph % (Auto) Lymph # [place] # Seg Neutrophils % Seg Neutrophils # VBG pH Carbon Dioxide 20 L BUN 20 H Glucose POC Glucose 152 H 169 H Lactic Acid Magnesium ALT 5 L NT-Pro-B Natriuret Pep Albumin 3.7 L Urine WBC (Auto) 01/20/18 01/21/18 01/21/18 22:26 16:27 16:52 WBC Hgb MCH Lymph % (Auto) Lymph # [place] # Seg Neutrophils % Seg Neutrophils # VBG pH Carbon Dioxide BUN Glucose POC Glucose 129 H 53 L 119 H Lactic Acid Magnesium ALT NT-Pro-B Natriuret Pep Albumin Urine WBC (Auto) 01/22/18 01/22/18 01/22/18 08:31 15:56 22:15 WBC Hgb MCH Lymph % (Auto) Lymph # [place] # Seg Neutrophils % Seg Neutrophils # VBG pH Carbon Dioxide BUN Glucose POC Glucose 108 H 213 H 277 H Lactic Acid Magnesium ALT NT-Pro-B Natriuret Pep Albumin Urine WBC (Auto)
[2018-01-23] MEDS: DUONEB *Not for PRN Use IH SCH ×2 (09:53→14:30)
[2018-01-23] MEDS ORDERED: PEPCID PO SCH (10:00)
[2018-01-23] MEDS ORDERED: cefTRIAXone 1 GM in NACL 0.9% 20 ML IV SCH (10:00)
--- NOTE | 2018-01-23 10:36 | Gastroenterology Progress Note ---
Assessment and Plan 1.dysphagia -s/p EGD that revealed a hiatal hernia, mild sticture GE junction (dilated), and gastritis (bx results pending) -s/p MBS yesterday that showed no evidence of aspiration, penetration, or stasis -recommendations given by WALL STEAMER for mechanical soft diet -patient tolerating diet this am w/o difficultly or c/o dysphagia -continue supportive care -no further recommendations per GI standpoint -will sign off, please call if needed Subjective Date of service: 01/23/18 Principal diagnosis: dysphagia Interval history: No acute distress or events overnight. Patient tolerating diet this am w/o complaints of dysphagia, abd pain, or N/V. Objective - Constitutional Vitals: Temp Pulse Resp BP Pulse Ox 98.3 F 88 20 140/69 96 01/23/18 07:46 01/22/18 22:35 01/23/18 07:46 01/23/18 07:46 01/22/18 22:00 General appearance: no acute distress - Respiratory Respiratory: bilateral: diminished (anterior) - Cardiovascular Rhythm: regular Heart Sounds: Present: S1 & S2 - Gastrointestinal General gastrointestinal: Present: soft, non-tender, non-distended, normal bowel sounds - Labs CBC & Chem 7: 01/20/18 03:44 01/20/18 03:44 Labs: Laboratory Results - last 24 hr 01/21/18 01/21/18 01/22/18 16:27 16:52 11:59 POC Glucose 53 L 119 H 100 01/22/18 01/22/18 01/23/18 15:56 22:15 07:54 POC Glucose 213 H 277 H 98
[2018-01-23] MEDS: HEPARIN SUB-Q SCH (10:40)
[2018-01-23] MEDS: IMDUR PO SCH (10:42)
[2018-01-23] MEDS: RANEXA ER PO SCH (10:44)
[2018-01-23] MEDS: HALFPRIN EC PO SCH (10:44)
[2018-01-23] MEDS: ARICEPT PO SCH (10:44)
[2018-01-23] MEDS: PLAVIX PO SCH (10:44)
[2018-01-23] MEDS: DITROPAN XL PO SCH (10:44)
[2018-01-23] MEDS: LOPRESSOR PO SCH (10:45)
[2018-01-23] MEDS: ESTRACE PO SCH (10:45)
[2018-01-23] MEDS: COZAAR PO SCH (10:45)
[2018-01-23] MEDS: APRESOLINE PO SCH (10:46)
[2018-01-23] MEDS: GLUCOPHAGE PO SCH (10:46)
[2018-01-23] MEDS: NORVASC PO SCH (10:46)
[2018-01-23] MEDS: SODIUM CHLORIDE FLUSH SYRINGE 10 ML IV SCH (11:41)
[2018-01-23 12:08] LABS: Hematocrit 27.7 % (30.3-42.9); Hemoglobin 9.2 gm/dl (10.1-14.3); Mean Corpuscular HGB Conc 33 % (30-34); Mean Corpuscular Hemoglobin 26 pg (28-32); Mean Corpuscular Volume 79 fl (79-97); Platelet Count 287 K/mm3 (140-440); Red Blood Count 3.51 M/mm3 (3.65-5.03); Red Cell Distribution Width 15.2 % (13.2-15.2)
[2018-01-23 12:26] LABS: BUN/Creatinine Ratio 14; Blood Urea Nitrogen 11 mg/dL (7-17); Calcium 8.5 mg/dL (8.4-10.2); Hemolysis Index 0
--- NOTE | 2018-01-23 12:32 | Discharge Summary ---
Providers - Providers Date of Admission: 01/19/18 18:40 Date of discharge: 01/23/18 Attending physician: COLETTE KOVACS 01/20/18 08:38 Speech Therapy Evaluation and Treat [CONS] Routine Reason For Exam: dysphagia 01/20/18 08:39 Consult to Physician [CONS] Routine Comment: dr. antonio was notified Consulting Provider: ELLIOTT MCKEON Physician Instructions: does not consult pat. here anymore Reason For Exam: laryngeal mass? 01/20/18 08:40 Consult to Physician [CONS] Routine Comment: Spoke with Tammy concerning consult(Rico) Consulting Provider: ROBBIE COBOS Physician Instructions: Reason For Exam: esophageal distension 01/21/18 10:16 Consult to Physician [CONS] Routine Comment: POORN[place]A Consulting Provider: ELMER FOY Physician Instructions: CONSULT WAS CALLED TO [facility] [phone] Reason For Exam: soft tissue endobronchial mass Primary care physician: ИРИНА BERKOWITZ Hospitalization Condition: Stable Procedures: Procedure: EGD Pre-op diagnosis: dysphagia Post-op diagnosis: same Findings: EGD: hiatal hernia - mild stricture g-e junction ([place] 60 F dilation performed) - gastritis - negative other Hospital course: This is a 77 year old half-way resident with history of advanced dementia, coronary artery disease, hypothyroidism hypertension and GERD was sent for evaluation of "respiratory distress". On presentation to the ED Respiratory rate was 19 and she was afebrile. She had a CT chest done, which showed laryngeal mass and endobronchial lesion. Pulmonary was consulted to evaluation of the endobronchial lesion. Vault Cashier followed the patient and suspected endobronchial lesion is probable food particles from recurrent aspiration. The daughter endorsed, coughing with her meals. Barium swallow study was obtained and result was consistent with possible GE junction stricture and presence of retained debris's/material. GI was consulted and EGD revealed a hiatal hernia mild stricture of GE junction and gastritis. Patient was further evaluated by modified barium swallow study which did not show any evidence of aspiration or penetration or stasis. Speech therapy recommended to place the patient on mechanical soft diet, ground meat and regularly quit. Patient tolerated the diet and no further episode of aspiration noted. Patient was discharged back to half-way in stable condition. Patient was also treated for aspiration pneumonia and urinary tract infection during this hospitalization. Discharge diagnosis and management: /Esophageal stricture barium swallow study was consistent with stricture ; GI consulted, s/p EGD that revealed a hiatal hernia, mild sticture GE junction (dilated), and gastritis, bx results pending, will follow outpatient s/p MBS study that showed no evidence of aspiration, penetration, or stasis speech recommended mechanical soft diet / Sepsis due to UTI and aspiration PNA - urine cx growing Klebsiella - Treated with antibiotics and will continue taking antibiotics outpatient to complete the regimen /laryngeal mass? -may be food particle ENT consulted, but Dr Balderrama asked that patient be referred to her clinic Discussed with pulmonary (most likely to be food particles), no abnormality on MBS /Hypertension , Cont Antihypertensives /CAD (coronary artery disease), cont Plavix and Imdur /Dementia, Cont Donepezil / Hypothyroidism, Cont Levothyroxine / OAB (overactive bladder), On Oxybutinin /T2DM (type 2 diabetes mellitus), Mx with SSI /DVT prophylaxis On Heparin Disposition: back to half-way with outpatient follow-up Radiological study: Barium swallow: Normal esophageal course and caliber, tertiary esophageal contractions. Presence of retained debris/material. Mild waist at the GE junction Chest CTA 1. No evidence of large vessel or central pulmonary emboli. No acute consolidation. Coronary artery calcifications. 2. Soft tissue nodular density in right infraglottic larynx may represent secretions versus polypoid lesion. Followup suggested. 3. Capacious esophagus containing particulate/probable ingested material throughout majority of esophagus possibly related to reflux. 4. Bibasilar interstitial prominence and slight endobronchial soft tissue density or mucous plugging primarily in left basilar bronchial airways may be postinfectious/inflammatory or sequelae of aspiration. Exact etiology or significance uncertain, and clinical correlation along with followup may be warranted. 5. Cholelithiasis. 6. Nonobstructing right renal calcification. No significant right hydronephrosis. CT Abdomen IMPRESSION: 1. Cholelithiasis. 2. Constipation. Hospitalist Physical General.: Appears well, no distress, nontoxic HEENT: Moist mucous membranes, extraocular muscles intact, no lymphadenopathy Neck: supple Cardiac: S1-S2 heard Lungs: clear to auscultation bilaterally Abdomen: soft , nontender, nondistended, bowel sounds positive Extremities: no edema clubbing or cyanosis Skin: no rash or lesions Neurologic: demented, oriented x 1, mumbles rubbish, moves all extremities Psych: child like behavior, pleasantly demented Disposition: DC/[place]-[facility] ANOTHER TYPE [facility] Time spent for discharge: 34 minutes Core Measure Documentation - Palliative Care Palliative Care/ Comfort Measures: Not Applicable - Core Measures Any of the following diagnoses?: history only Exam - Constitutional Vitals: Temp Pulse Resp BP Pulse Ox 98.3 F 82 20 140/69 96 01/23/18 07:46 01/23/18 10:45 01/23/18 07:46 01/23/18 10:45 01/22/18 22:00 Plan Activity: fall precautions Weight Bearing Status: Non-Weight Bearing Diet: advance as tolerated (mechanical soft diet with ground meats and regular liquids) Additional Instructions: Follow-up with GI for pending biopsy results in 2 weeks. Follow-up with ENT outpatient Dr. Balderrama for possible laryngeal mass Follow up with: ИРИНА BERKOWITZ MD [Primary Care Provider] - 3-5 Days Prescriptions: Amoxicillin/Potassium Clav [Augmentin 875-125 Tablet] 1 each PO BID #8 tablet
[2018-01-23 15:11] VITALS: BP 120/60
== END 2018-01-23 16:00 | disposition home or self-care (01) | DRG 871 ==
LOC: ED 13:05 → 2B-ACE 18:40
PROVIDERS: ADMIT Internal Medicine; ATTEND Internal Medicine
PROC: 0DB68ZX Excision of Stomach, Via Natural or Artificial Opening Endoscopic, Diagnostic (ICD-10-PCS; principal; 2018-01-21)
PROC: 0D748ZZ Dilation of Esophagogastric Junction, Via Natural or Artificial Opening Endoscopic (ICD-10-PCS; principal; 2018-01-21)
DX: A41.9 Sepsis, unspecified organism (principal); J69.0 Pneumonitis due to inhalation of food and vomit; N39.0 Urinary tract infection, site not specified; E44.0 Moderate protein-calorie malnutrition; F03.90 Unspecified dementia, unspecified severity, without behavioral disturbance, psychotic disturbance, mood disturbance, and anxiety; I25.10 Atherosclerotic heart disease of native coronary artery without angina pectoris; E03.9 Hypothyroidism, unspecified; I10 Essential (primary) hypertension; K21.9 Gastro-esophageal reflux disease without esophagitis; E11.9 Type 2 diabetes mellitus without complications; R22.9 Localized swelling, mass and lump, unspecified; N32.81 Overactive bladder; K80.20 Calculus of gallbladder without cholecystitis without obstruction; N28.89 Other specified disorders of kidney and ureter; K29.70 Gastritis, unspecified, without bleeding; K44.9 Diaphragmatic hernia without obstruction or gangrene; B96.1 Klebsiella pneumoniae [K. pneumoniae] as the cause of diseases classified elsewhere; K22.2 Esophageal obstruction; Z79.82 Long term (current) use of aspirin; Z79.4 Long term (current) use of insulin; Z87.891 Personal history of nicotine dependence; Z68.22 Body mass index [BMI] 22.0-22.9, adult
CPT/HCPCS: 36415; 71045; 71275; 74176; 74220; 74230; 80048; 80053; 80074; 81001; 82140; 82805; 82962; 83036; 83735; 83880; 84484; 85025; 85027; 85610; 85730; 87040; 87076; 87086; 87186; 88305; 88342; 93005; 93010; 94640; 94760; 96365; 96366; 96368; 99291; A9270-GY; G8996-GN; G8997-GN; G8998-GN; J0696; J1644; J1815; J1956; J2543; J2704; J3370; J7030; J7050; Q9967